=== PATIENT | female | born 1945 | race Caucasian/White ===

== ENCOUNTER → 2016-08-20 | Outpatient (CLI) | payer OTHER ==
[~2016-08-20] MED LIST: ZCRUNK
[2016-08-20 13:18] LABS: BLOOD UREA NITROGEN 16 mg/dl (7-18); BUN/CREATININE RATIO 18.4 (10-20); CALCIUM 8.7 mg/dl (8.5-10.1); CARBON DIOXIDE 29 mmol/L (21-32); CHLORIDE 104 mmol/L (98-107); CREATININE 0.85 mg/dl (0.60-1.20); GLUCOSE 127 mg/dl (70-99); POTASSIUM 4.4 mmol/L (3.5-5.1); SODIUM 141 mmol/L (136-145)
[2016-08-20 13:23] LABS: CHOLESTEROL 171 mg/dl (0-200); CHOLESTEROL/HDL RATIO 3.3; HDL CHOLESTEROL 52 mg/dl; TRIGLYCERIDES 120 mg/dl (0-150); VERY LOW DENSITY LIPOPROT CALC 24 mg/dl
[2016-08-20 14:25] LABS: ESTIMATED AVERAGE GLUCOSE 134 mg/dl; HA1C FLAG Normal (Normal)
== END | disposition home or self-care (01) ==
LOC: C.LABSPEC 12:31
PROVIDERS: ATTEND Internal Medicine
DX: E11.9 Type 2 diabetes mellitus without complications (principal); E66.09 Other obesity due to excess calories; I10 Essential (primary) hypertension; Z00.00 Encounter for general adult medical examination without abnormal findings

== ENCOUNTER → 2016-08-23 | Outpatient (CLI) | payer OTHER ==
[2016-08-23 16:10] LABS: RATIO 5.4 mcg/mg (0-30.0)
--- NOTE | 2016-08-27 11:44 | CODING QUERY NO DIAGNOSIS ---
: 1945 TREATMENT RENDERED WITHOUT A DIAGNOSIS To promote full compliance with coding requirements relating to patient care, physician participation is requested in all cases of guide dog mobility instructor uncertainty. Please assist us with providing a diagnosis/symptom for the test(s) below: A diagnosis/symptom was not documented on your Order. A valid diagnosis/symptom is required to bill all insurances. Please remember that we are unable to code a diagnosis of rule out, probable, possible, questionable, or suspected. Tests that require a diagnosis: * CLEOPATRA/RILEY RAT DOS: 08/23/16 DIAGNOSIS: Provider Signature: Date: Thank you [facility] Information Management Once completed, please kindly fax back to [phone] For questions please call [phone]
== END | disposition home or self-care (01) ==
LOC: C.LABSPEC 14:56
PROVIDERS: ATTEND Internal Medicine
DX: E11.9 Type 2 diabetes mellitus without complications (principal)

== ENCOUNTER → 2016-08-25 | Outpatient (CLI) | payer OTHER | END | disposition home or self-care (01) | LOC: C.LABSPEC 17:23 | PROVIDERS: ATTEND Internal Medicine | DX: R19.4 Change in bowel habit (principal) ==

== ENCOUNTER → 2017-02-18 | Outpatient (CLI) | payer OTHER ==
[2017-02-18 13:58] LABS: ESTIMATED AVERAGE GLUCOSE 137 mg/dl; HA1C FLAG Normal (Normal)
[2017-02-18 14:02] LABS: BLOOD UREA NITROGEN 11 mg/dl (7-18); BUN/CREATININE RATIO 12.7 (10-20); CALCIUM 8.8 mg/dl (8.5-10.1); CARBON DIOXIDE 28 mmol/L (21-32); CHLORIDE 107 mmol/L (98-107); CHOLESTEROL 164 mg/dl (0-200); CREATININE 0.83 mg/dl (0.60-1.20); GLUCOSE 133 mg/dl (70-99); POTASSIUM 4.3 mmol/L (3.5-5.1); SODIUM 140 mmol/L (136-145)
[2017-02-18 14:05] LABS: CHOLESTEROL/HDL RATIO 3.3; HDL CHOLESTEROL 50 mg/dl; TRIGLYCERIDES 128 mg/dl (0-150); VERY LOW DENSITY LIPOPROT CALC 26 mg/dl
== END | disposition home or self-care (01) ==
LOC: C.LABSPEC 12:43
PROVIDERS: ATTEND Internal Medicine
DX: E11.9 Type 2 diabetes mellitus without complications (principal); E78.5 Hyperlipidemia, unspecified

== ENCOUNTER → 2017-06-08 | Outpatient (CLI) | payer OTHER ==
--- NOTE | 2017-06-08 14:26 | MAMMOGRAPHY REPORT ---
BILATERAL DIGITAL SCREENING MAMMOGRAM TOMOSYNTHESIS WITH CAD: 06/08/2017 CLINICAL HISTORY: Routine screening. Patient has no complaints. TECHNIQUE: Breast tomosynthesis in addition to standard 2D mammography was performed. Current study was also evaluated with a Computer Aided Detection (CAD) system. COMPARISON: Comparison is made to exams dated: 06/07/2016 mammogram, 06/03/2015 mammogram, 04/24/2014 mammogram, 04/23/2013 mammogram, 04/03/2012 mammogram, and 04/02/2011 mammogram - [facility]. BREAST COMPOSITION: There are scattered areas of fibroglandular density in both breasts. FINDINGS: No suspicious masses, calcifications, or areas of architectural distortion are noted in ei ther breast. There has been no significant interval change compared to prior exams. Small circumscri bed oval benign-appearing mass in the right lateral breast on the cc view is stable dating back to at least the May 2015 exam, and considered benign given long-term stability. IMPRESSION: ACR BI-RADS CATEGORY 2: BENIGN There is no mammographic evidence of malignancy. A 1 year screening mammogram is recommended. The pa tient will receive written notification of the results. Approximately 10% of breast cancers are not detected with mammography. A negative mammographic report should not delay biopsy if a clinically suggestive mass is present. Cristina Pollard M.D. /:06/08/2017 12:17:56 [employer] Assistant: Teagan HOUSE)(Dany), [facility] letter sent: Normal 1/2 BI-RADS Code: ACR BI-RADS Category 2: Benign
== END | disposition home or self-care (01) ==
LOC: C.MAMM 11:19
PROVIDERS: ATTEND Internal Medicine
DX: Z12.31 Encounter for screening mammogram for malignant neoplasm of breast (principal)

== ENCOUNTER → 2017-08-22 | Outpatient (CLI) | payer OTHER ==
[2017-08-22 15:35] LABS: BLOOD UREA NITROGEN 10 mg/dl (7-18); CARBON DIOXIDE 30 mmol/L (21-32); CREATININE 0.82 mg/dl (0.60-1.20); GLUCOSE 111 mg/dl (70-99); POTASSIUM 3.8 mmol/L (3.5-5.1); SODIUM 136 mmol/L (136-145)
[2017-08-22 15:38] LABS: CHOLESTEROL 179 mg/dl (0-200); LDL CHOLESTEROL (DIRECT) 116 mg/dl
[2017-08-22 16:15] LABS: HEMOGLOBIN A1C 6.5 % (4.5-5.6)
== END | disposition home or self-care (01) ==
LOC: C.LABSPEC 14:45
PROVIDERS: ATTEND Internal Medicine
DX: Z00.00 Encounter for general adult medical examination without abnormal findings (principal); E11.9 Type 2 diabetes mellitus without complications; E78.5 Hyperlipidemia, unspecified

== ENCOUNTER → 2017-08-25 | Outpatient (CLI) | payer OTHER ==
[2017-08-25 13:51] LABS: CREATININE RANDOM URINE 35.7 mg/dl
== END | disposition home or self-care (01) ==
LOC: C.LABSPEC 12:31
PROVIDERS: ATTEND Internal Medicine
DX: E11.9 Type 2 diabetes mellitus without complications (principal)

== ENCOUNTER → 2017-09-26 | Outpatient (CLI) | payer OTHER ==
[2017-10-03 14:08] LABS: FECAL OCCULT BLOOD #1 NEGATIVE (NEGATIVE); FECAL OCCULT BLOOD #2 NEGATIVE (NEGATIVE); FECAL OCCULT BLOOD #3 NEGATIVE (NEGATIVE)
== END | disposition home or self-care (01) ==
LOC: C.LABSPEC 12:34
PROVIDERS: ATTEND Internal Medicine
DX: Z12.11 Encounter for screening for malignant neoplasm of colon (principal)

== ENCOUNTER 2023-12-13 13:46 | Inpatient (IN) ==
[2023-12-13] MEDS: SODIUM CHLORIDE 0.9% 1,000 ML IV SCH (14:13)
[2023-12-13] MEDS: dilTIAZem HCl 5 MG/ML 5 ML VIAL IV STA (14:14)
[2023-12-13] MEDS: dilTIAZem HCl 5 MG/ML 5 ML VIAL IV ONE (14:24)
[2023-12-13] MEDS: ONDANSETRON INJ 2 MG/ML 2 ML VIAL IV STA (14:30)
[2023-12-13 14:41] LABS: Basophils # (auto) 0.02 K/uL (0.00-0.20); Basophils % (auto) 0.4 %; Eosinophils # (auto) 0.07 K/uL (0.00-0.50); Eosinophils % (auto) 1.3 %; Hematocrit (blood only) 43.8 % (37.0-47.0); Hemoglobin 14.7 g/dl (12.0-16.0); Immature Granulocytes # (auto) 0.02 K/uL (0.01-0.20); Immature Granulocytes % (auto) 0.4 %; Lymphocytes % (auto) 29.1 %; Mean Corpuscular Hemoglobin 30.2 pg (25.0-34.0); Mean Corpuscular Hgb Conc 33.6 g/dL (32.0-36.0); Mean Corpuscular Volume 90.1 fL (80.0-100.0); Mean Platelet Volume 10.1 fL (9.4-12.4); Monocytes # (auto) 0.44 K/uL (0.11-0.59); Neutrophils # (auto) 3.34 K/uL (1.40-6.50); Neutrophils % (auto) 60.8 %; Platelet Count 424 K/uL (130-400); RDW Coefficient of Variation 12.2 % (11.5-14.5); RDW Standard Deviation 40.4 fL (36.4-46.3); Red Blood Count 4.86 M/uL (4.20-5.40); White Blood Count 5.49 K/ul (4.8-10.8)
[2023-12-13 14:42] LABS: iSTAT Creatinine 1.2 mg/dl (0.6-1.3); iSTAT Hemoglobin 14.6 g/dl (12.0-16.0); iSTAT Ionized Calcium 1.04 mmol/l (1.12-1.32); iSTAT Potassium 3.9 mmol/L (3.3-5.0)
--- NOTE | 2023-12-13 15:05 | XRay Report ---
SINGLE VIEW CHEST CLINICAL HISTORY: Sepsis. FINDINGS: An AP, portable, upright chest radiograph is obtained. No prior studies are available for c omparison at the time of dictation. The heart is enlarged noting atherosclerotic calcification of the thoracic aorta. The pulmonary vasculature is noncongested. Nonspecific interstitial thickening is li jessie chronic. There is bibasilar scarring/atelectasis. The lungs and pleural spaces are otherwise judith ar. No pneumothorax is seen. The skeletal structures are osteopenic. The bony thorax is grossly intac t. IMPRESSION: Cardiomegaly with no active disease in the chest. ACT 112: Negative or not required by law. Electronically signed by: Aguilar Bravo M.D. 12/13/2023 3:04 PM
[2023-12-13 15:08] LABS: Albumin Level 4.1 gm/dl (3.4-5.0); BUN Creatinine Ratio 21.7 (10-20); Bilirubin Direct 0.2 mg/dl (0-0.2); Calcium 8.9 mg/dl (8.6-10.3); Creatinine Clr Calc Pharmacy 52.4 ml/min; Est GFR (African American) 58.2 ml/min; Est GFR (Non-African American) 50.3 ml/min; Magnesium 1.9 mg/dl (1.7-2.4); Total Protein 6.9 gm/dl (6.0-8.3)
[2023-12-13] MEDS: OPTIRAY 320 125ml IV ONE (15:15)
[2023-12-13 15:27] LABS: Troponin I High Sensitivity 55.8 pg/ml (0-14)
[2023-12-13] MEDS: dilTIAZem HCL 125 MG in DEXTROSE 5% 100 ML IV SCH (15:43)
--- NOTE | 2023-12-13 15:47 | CT Scan Report ---
CT ANGIOGRAM OF THE CHEST; CT SCAN OF THE ABDOMEN AND PELVIS WITH IV CONTRAST CLINICAL HISTORY: Dyspnea. Nausea and vomiting. COMPARISON STUDY: Chest x-ray dated 12/13/2023. TECHNIQUE: Following the IV administration of 118 of Optiray 320, CT angiogram of the chest is perfor med from the upper abdomen to the thoracic inlet utilizing the pulmonary embolus protocol. Images are reviewed in the axial, sagittal, coronal planes. 3-D MIPS images are created and assessed. Subsequen tly, CT scan of the abdomen and pelvis was performed from the lung bases to the proximal femora. Imag es are reviewed in the axial, sagittal, and coronal planes. IV contrast was administered without comp lication. A dose lowering technique was utilized adhering to the principles of ALARA. CT DOSE: 2211.94 mGy.cm FINDINGS: CHEST: Thyroid: Imaged portions of the thyroid gland are normal in size and attenuation. Thoracic aorta: There is atherosclerotic calcification of the thoracic aorta, which is normal in andrew koby and demonstrates standard 3-vessel arch anatomy. No dissection is seen. Pulmonary vasculature: The main pulmonary arteries are dilated suggesting pulmonary artery hypertensi on. There are no filling defects identified in the main, lobar, or segmental pulmonary arteries to in dicate pulmonary embolus. Heart: The heart is mildly enlarged and without pericardial effusion. The mitral annulus is calcified . There are scattered coronary artery calcifications Lungs and pleural spaces: There is no airspace consolidation or pleural effusion. Scarring/atelectasi s is noted at the lung bases. The trachea and central airways are clear. Diffuse peribronchial thicke eileen is observed there are scattered calcified granulomas. Mediastinum: There is no mediastinal lymphadenopathy. Alva: There are calcified left hilar nodes. No adenopathy is seen. Axillae: There is no axillary lymphadenopathy. Bony thorax: The skeletal structures are osteopenic. Degenerative change is noted in the shoulders an d thoracic spine. A large hemangioma is noted in the body of T11. No lytic or blastic lesions are anisa ntified. ABDOMEN AND PELVIS: Liver: The contrast-enhanced liver is normal in size, contour, and attenuation. There is no intrahepa tic biliary ductal dilatation. The hepatic veins and portal veins are patent. There are scattered rosy cified hepatic granulomas. Gallbladder: Unremarkable. Spleen: Normal in size and attenuation. There are calcified splenic granulomas. Pancreas: Mild atrophic and grossly unremarkable. Adrenal glands: Unremarkable. Kidneys: The contrast enhanced kidneys are normal in size and without hydronephrosis. The kidneys enh ance symmetrically. Abdominal vasculature: The abdominal aorta is normal in course and caliber noting mild atheroscleroti c calcification. Stomach and bowel: A small hiatal hernia is noted. No bowel obstruction is seen. There is mild coloni c diverticulosis without CT evidence of acute diverticulitis. The appendix is well-visualized and no rmal. Peritoneum: There is no intraperitoneal free air or abdominal ascites. There is a fat-containing umbi lical hernia. Lymphadenopathy: None. Pelvic viscera: The bladder is normal as visualized. The endometrium appears thickened for age, measu ring up to 14 mm. A 14 mm simple cystic focus is seen in the right ovary. Skeletal structures: The skeletal structures are osteopenic. There is mild to moderate lumbosacral sp ondylosis. No lytic or blastic lesions are seen. IMPRESSION: 1. There is no evidence of pulmonary embolus in the main, lobar, or segmental pulmonary arteries. 2. There is no airspace consolidation or pleural effusion. 3. No acute infectious or inflammatory findings are identified in the abdomen or pelvis. 4. Mild colonic diverticulosis without CT evidence of acute diverticulitis. 5. The endometrium appears thickened for age. This is not well assessed by CT, and nonemergent follow -up with gynecology and pelvic ultrasound is recommended for further assessment. 6. Additional findings as above. ACT 112: Negative or not required by law. Electronically signed by: Aguilar Bravo M.D. 12/13/2023 3:45 PM
[2023-12-13 15:54] LABS: Base Excess VBG 1.7 mEq/L; HCO3 VBG 28 mmol/L; Oxygen Saturation VBG < 60.0 %; PCO2 VBG 51 mmHg (38-50); PO2 VBG 25 mmHg; pH VBG 7.35 (7.36-7.41)
[2023-12-13] MEDS: STAT IV Infusion **Titration per Protocol STA (16:00)
[2023-12-13] MEDS ORDERED: CARBOHYDRATES FOR HYPOGLYCEMIA PO PRN (16:10)
[2023-12-13] MEDS ORDERED: GLUCAGON FOR INJ 1 MG VIAL SQ PRN (16:10)
[2023-12-13] MEDS ORDERED: GLUCOSE 10 TAB/TUBE PO PRN (16:10)
[2023-12-13] MEDS ORDERED: GLUCOSE 40% GEL 15 GM TUBE PO PRN (16:10)
[2023-12-13] MEDS ORDERED: DEXTROSE 50% 50 ML SYRINGE IV PRN (16:10)
[2023-12-13 16:23] LABS: Partial Thromboplastin Ratio 0.9; Partial Thromboplastin Time 25 Seconds (21-31); Prothrombin Time 10.6 Seconds (9.0-12.0)
--- NOTE | 2023-12-13 16:26 | Electrocardiogram Report ---
Test Reason : Blood Pressure : / mmHG Vent. Rate : 125 BPM Atrial Rate : 000 BPM P-R Int : 000 ms QRS Dur : 074 ms QT Int : 316 ms P-R-T Axes : 000 010 132 degrees QTc Int : 456 ms Atrial fibrillation with rapid ventricular response Minimal voltage criteria for LVH, may be normal variant ( R in aVL ) Abnormal ECG When compared with ECG of 08-JUN-1999 05:19, Atrial fibrillation has replaced Sinus rhythm Vent. rate has increased BY [address] now depressed in Lateral leads T wave inversion now evident in Lateral leads Confirmed by Toney Ward ([id number]) on 12/13/2023 4:26:02 PM Referred By: Confirmed By:Tonye Ward
[2023-12-13 16:38] LABS: Troponin I High Sensitivity 55.2 pg/ml (0-14)
[2023-12-13] MEDS: SODIUM CHLORIDE 0.9% 1,000 ML IV ONE (16:40)
[2023-12-13 16:47] LABS: Thyroid Stimulating Hormone 1.17 uIu/ml (0.300-4.500)
--- NOTE | 2023-12-13 16:52 | History & Physical Report ---
Date of Service December 13, 2023 Assessment & Plan (1) Atrial fibrillation with rapid ventricular response: Plan: -Admit to the PCU on tele and pulse oximetry -Currently in afib RVR with HR in the 120's but otherwise stable after additional IV fluid resuscitation at the time of admission -Presented to the ED with one week of non-productive cough, nausea/vomiting, non-bloody diarrhea, and generalized weakness -Found to be in new-onset afib RVR with HR in the 120-140's -Was given 1L NSS, 20 mg IV diltiazem and started on a diltiazem drip at 5 mg/hr prior to admission -At this time it appears that the patient's dehydration and Covid-19 infection are the most-likely causes of her afib RVR -Electrolytes are stable, CTA of the chest and CT of the abd/pelvis were negative for acute causes -TSH is WNL -We will give an additional 750 cc bolus of NSS to give a total of 2L NSS since arrival to the ED -Will start maintenance LR at 100 mL/hr following as she is quite dehydrated and still nauseous -Hold antihypertensives at this time -Will give 10 meq IV KCL and 2gm IV mag-sulfate as K+ is 3.9 and mag is 1.8 -Continue diltiazem drip for now -Will start low dose, weight based heparin drip, w/bolus for anticoagulation -Follow TTE tomorrow -Heparin drip for DVT PPX -HH/DMII diet -AM CBC, CMP, mag, PT/INR (2) Nausea and vomiting: Plan: -Likely due to covid 19 infection -No acute findings on CT of the abd/pelvis w/con -Will continue IV hydration and prn zofran for now (3) COVID-19: Plan: -Patient reports positive home test on 12/12/23 -Start Covid 19 precautions -Will obtain official testing on admission -Patient is not hypoxic, supportive care for now -Incentive spirometry, prn guaifenesin, prn O2 to keep SpO2 at or above 92% (4) Abnormal CT scan, pelvis: Plan: -CT scan of the abd/pelvis w/IV con today mentions increased thickening of the endometrium for the patient's age -Recommends non-emergent pelvic US and [facility] gynecology follow-up -Please ensure patient has follow up scheduled before discharge (5) Diarrhea: Plan: -Patient reports multiple episodes of non-blood diarrhea over the past week -Has improved as the week progressed, likely due to Covid 19 infection -No recent antibiotic use -If she continues to have diarrhea will obtain stool studies -Hold antidiarrheals for now (6) Elevated troponin: Plan: -Initial high sen trop elevated at 55 --> 55 on 2 hour repeat -Patient denies chest pain -Likely due to demand from afib RVR, dehydration, and hypotension -Continue treatment per Afib RVR plan, continue IV hydration -Follow TTE tomorrow -Continue heparin drip -will continue to trend high sen trop overnight (7) HTN (hypertension): Plan: -Currently stable -Hold amlodipine and lisinopril for now with hypotension at the time of admission (8) DMII (diabetes mellitus, type 2): Plan: -Hold metformin -Monitor BSG ACHS, goal is 110-160 for now -Not on insulin at home -Start CF 50 and CR of 15 for now -Adjust regimen as needed (9) Hyperlipidemia: Plan: -Continue statin Plan The patient was discussed with Dr. Lamb at the time of the admission History of Present Illness Chief Complaint: Generalized weakness, nausea, vomiting, Covid 19 Primary Care Provider: Gill Christina PA-C Shannan is a 78 year old female with a PMH significant for HTN, hyperlipidemia, and DMII who presented to the [facility] ED on 12/13/23 with complaints of positive home Covid-19 test on 12/12/23 and ongoing weakness, nausea, vomiting for the past week. On arrival to the ED she was noted to be tachycardic with HR in the 150's but was otherwise stable. ECG shows patient to be in new onset afib RVR. Labs were significant for a Cr of 1.06 (baseline is near 0.7), AG of 12 with bicarb WNL, chloride of 96, corrected sodium of 135, glucose of 181, ionized calcium of 1.04, initial high sen trop of 55 --> 55 on 2 hour repeat. Chest xray was negative for acute findings. CTA of the chest and CT of the abd/pelvis w/IV con were read as "1. There is no evidence of pulmonary embolus in the main, lobar, or segmental pulmonary arteries. 2. There is no airspace consolidation or pleural effusion. 3. No acute infectious or inflammatory findings are identified in the abdomen or pelvis. 4. Mild colonic diverticulosis without CT evidence of acute diverticulitis. 65. The endometrium appears thicke missy for age. This is not well assessed by CT, and nonemergent follow-up with gynecology and pelvic ultrasound is recommended for further assessment. 6. Additional findings as above.". Prior to admission the patient was given 1L NSS, 20 mg IV diltiazem, 4 mg IV zofran, and was started on a diltiazem drip at 5 mg/hr. At the time of the exam the patient was sitting in bed in no acute distress. She states that she started to develop a non-productive cough, nausea, non- bloody emesis, non-bloody diarrhea, and poor oral intake one week ago. She has had very poor oral intake over this time but has still been taking her home meds as prescribed, including her antihypertensives. She presented to the ED today as she continues to feel generally weak and was not improving. Denies recent chest pain, SOB, abd pain, hemoptysis, dysuria, hematuria, melena, LE swelling, and recent trauma. We discussed her [id number] score of 5, giving her an approximately 7.2% stroke risk per/year. When asked, patient and her [id number] confirm the patient does not have a previous Hx of major bleeding such as stroke, GI bleed, hematuria, and is not a high fall risk. Patient would like to being anticoagulation at this time. The patient is a full code and she would want her son to make medical decisions for her if she cannot make them herself. At the end of my exam the patient's HR increased to the 140's and her systolic BP fell into the mid 70's. Patient became light headed but denies other symptoms. We gave the patient an additional 250 cc NSS bolus and her pressure/symptoms improved. Please refer to Dr. Lamb' attestation for any changes to the treatment plan Allergies Allergy/AdvReac Type Severity Reaction Status Date / Time No Known Allergies Allergy Verified 12/13/23 16:05 Home Medications Medication Instructions Recorded Confirmed Type amlodipine 5 mg tablet 5 mg PO QAM 12/13/23 12/13/23 History lisinopril 40 mg tablet 40 mg PO QAM 12/13/23 12/13/23 History metformin 500 mg tablet 500 mg PO QAM 12/13/23 12/13/23 History simvastatin 40 mg tablet 40 mg PO 12/13/23 12/13/23 History Past Med/Surg History Social History Smoking Status: Never smoker Preferred Language: Kinyarwanda Feels Safe at Home: Yes Physical Exam Physical Exam: Physical Exam: General: In no acute distress, stated age, ill but non-toxic appearing HEENT: Normocephalic, atraumatic, no scleral icterus, pupils around round, symmetrical, and reactive to light, dry mucus membranes, trachea midline, no thyromegaly Chest/Pulm: No respiratory distress, symmetrical chest expansion, clear breath sounds throughout Cardiac: irregular rate and rhythm, no murmurs noted Abdomen: Negative for ascites and bruising, normoactive bowel sounds, soft, non-tender to palpation throughout Musculoskeletal: Symmetrical and without signs of acute trauma, upper and lower extremities with full ROM, no atrophy, spasticity, or flaccidity Extremities: Radial, dorsalis pedis, and posterior tibial pulses are intact and symmetrical, no edema noted in the BL LE's Skin: Warm, dry, no rashes , lesions, or scars noted Neuro: Alert and oriented to person, place, month, year, and president, no focal defects, CN II-XII tested and intact, no tremors noted Psych: No acute distress, calm and cooperative during the exam Results & Data Results & Data Vital Signs (Past 12 Hours) Vital Signs Temp Pulse Resp BP Pulse Ox O2 Del Method 12/13/23 15:50 120 H 18 93 Room Air 12/13/23 15:50 126/79 12/13/23 15:44 114/86 12/13/23 15:44 114/86 12/13/23 15:44 141 H 19 94 12/13/23 15:40 137 H 11 L 93 12/13/23 15:30 108 H 9 L 96 12/13/23 15:23 132 H 19 97 12/13/23 14:50 105 H 17 97 12/13/23 14:40 106 H 27 H 91 12/13/23 14:31 120/61 12/13/23 14:31 96 H 23 12/13/23 14:30 94 H 25 H 93 12/13/23 14:26 82 18 93 12/13/23 14:26 109/50 L 12/13/23 14:20 93 H 15 92 12/13/23 14:19 102/56 L 12/13/23 14:19 81 21 12/13/23 14:15 164 H 18 12/13/23 14:15 142/72 H 12/13/23 14:10 133 H 22 12/13/23 14:07 92 Room Air 12/13/23 14:03 150 H 12/13/23 14:02 152 H 16 12/13/23 13:49 36.4 C L 120 H 22 102/66 96 Room Air Laboratory Results Abnormal lab results 12/13/23 12/13/23 12/13/23 Range/Units 14:00 14:29 15:33 Plt Count 424 H (130-400) K/uL VBG pH 7.35 L (7.36-7.41) VBG pCO2 51 H (38-50) mmHg POC Sodium 134 L (135-144) mmol/L Sodium 134 L (136-145) mmol/L POC Chloride 97 L (101-112) mmol/L Chloride 96 L (98-107) mmol/L Anion Gap 12 H (3-11) POC Anion Gap 14.0 L (16-25) mmol/L POC BUN 27 H (7-18) mg/dl BUN/Creatinine Ratio 21.7 H (10-20) Glucose 181 H (70-99(Fasting)) mg/dl POC Glucose (other) 179 H (70-99) mg/dl POC Ioniz Calcium Georgette 1.04 L (1.12-1.32) mmol/l Troponin I High Sens 55.8 H* (0-14) pg/ml 12/13/23 Range/Units 15:35 Plt Count (130-400) K/uL VBG pH (7.36-7.41) VBG pCO2 (38-50) mmHg POC Sodium (135-144) mmol/L Sodium (136-145) mmol/L POC Chloride (101-112) mmol/L Chloride (98-107) mmol/L Anion Gap (3-11) POC Anion Gap (16-25) mmol/L POC BUN (7-18) mg/dl BUN/Creatinine Ratio (10-20) Glucose (70-99(Fasting)) mg/dl POC Glucose (other) (70-99) mg/dl POC Ioniz Calcium Georgette (1.12-1.32) mmol/l Troponin I High Sens 55.2 H* (0-14) pg/ml Diagnostic Findings Chest X-Ray 12/13/23 14:07 SINGLE VIEW CHEST CLINICAL HISTORY: Sepsis. FINDINGS: An AP, portable, upright chest radiograph is obtained. No prior studies are available for comparison at the time of dictation. The heart is enlarged noting atherosclerotic calcification of the thoracic aorta. The pulmonary vasculature is noncongested. Nonspecific interstitial thickening is likely chronic. There is bibasilar scarring/atelectasis. The lungs and pleural spaces are otherwise clear. No pneumothorax is seen. The skeletal structures are osteopenic. The bony thorax is grossly intact. IMPRESSION: Cardiomegaly with no active disease in the chest. ACT 112: Negative or not required by law. Electronically signed by: Aguilar Bravo M.D. 12/13/2023 3:04 PM Abdomen/Pelvis CT 12/13/23 14:08 CT ANGIOGRAM OF THE CHEST; CT SCAN OF THE ABDOMEN AND PELVIS WITH IV CONTRAST CLINICAL HISTORY: Dyspnea. Nausea and vomiting. COMPARISON STUDY: Chest x-ray dated 12/13/2023. TECHNIQUE: Following the IV administration of 118 of Optiray 320, CT angiogram of the chest is performed from the upper abdomen to the thoracic inlet utilizing the pulmonary embolus protocol. Images are reviewed in the axial, sagittal, coronal planes. 3-D MIPS images are created and assessed. Subsequently, CT scan of the abdomen and pelvis was performed from the lung bases to the proximal femora. Images are reviewed in the axial, sagittal, and coronal planes. IV contrast was administered without complication. A dose lowering technique was utilized adhering to the principles of ALARA. CT DOSE: 2211.94 mGy.cm FINDINGS: CHEST: Thyroid: Imaged portions of the thyroid gland are normal in size and attenuation. Thoracic aorta: There is atherosclerotic calcification of the thoracic aorta, which is normal in caliber and demonstrates standard 3-vessel arch anatomy. No dissection is seen. Pulmonary vasculature: The main pulmonary arteries are dilated suggesting pulmonary artery hypertension. There are no filling defects identified in the main, lobar, or segmental pulmonary arteries to indicate pulmonary embolus. Heart: The heart is mildly enlarged and without pericardial effusion. The mitral annulus is calcified. There are scattered coronary artery calcifications Lungs and pleural spaces: There is no airspace consolidation or pleural effusion. Scarring/atelectasis is noted at the lung bases. The trachea and central airways are clear. Diffuse peribronchial thickening is observed there are scattered calcified granulomas. Mediastinum: There is no mediastinal lymphadenopathy. Alva: There are calcified left hilar nodes. No adenopathy is seen. Axillae: There is no axillary lymphadenopathy. Bony thorax: The skeletal structures are osteopenic. Degenerative change is noted in the shoulders and thoracic spine. A large hemangioma is noted in the body of T11. No lytic or blastic lesions are identified. ABDOMEN AND PELVIS: Liver: The contrast-enhanced liver is normal in size, contour, and attenuation. There is no intrahepatic biliary ductal dilatation. The hepatic veins and portal veins are patent. There are scattered calcified hepatic granulomas. Gallbladder: Unremarkable. Spleen: Normal in size and attenuation. There are calcified splenic granulomas. Pancreas: Mild atrophic and grossly unremarkable. Adrenal glands: Unremarkable. Kidneys: The contrast enhanced kidneys are normal in size and without hydronephrosis. The kidneys enhance symmetrically. Abdominal vasculature: The abdominal aorta is normal in course and caliber noting mild atherosclerotic calcification. Stomach and bowel: A small hiatal hernia is noted. No bowel obstruction is seen. There is mild colonic diverticulosis without CT evidence of acute diverticulitis. The appendix is well-visualized and normal. Peritoneum: There is no intraperitoneal free air or abdominal ascites. There is a fat-containing umbilical hernia. Lymphadenopathy: None. Pelvic viscera: The bladder is normal as visualized. The endometrium appears thickened for age, measuring up to 14 mm. A 14 mm simple cystic focus is seen in the right ovary. Skeletal structures: The skeletal structures are osteopenic. There is mild to moderate lumbosacral spondylosis. No lytic or blastic lesions are seen. IMPRESSION: 1. There is no evidence of pulmonary embolus in the main, lobar, or segmental pulmonary arteries. 2. There is no airspace consolidation or pleural effusion. 3. No acute infectious or inflammatory findings are identified in the abdomen or pelvis. 4. Mild colonic diverticulosis without CT evidence of acute diverticulitis. 5. The endometrium appears thickened for age. This is not well assessed by CT, and nonemergent follow-up with gynecology and pelvic ultrasound is recommended for further assessment. 6. Additional findings as above. ACT 112: Negative or not required by law. Electronically signed by: Aguilar Bravo M.D. 12/13/2023 3:45 PM Chest CTA 12/13/23 14:08 CT ANGIOGRAM OF THE CHEST; CT SCAN OF THE ABDOMEN AND PELVIS WITH IV CONTRAST CLINICAL HISTORY: Dyspnea. Nausea and vomiting. COMPARISON STUDY: Chest x-ray dated 12/13/2023. TECHNIQUE: Following the IV administration of 118 of Optiray 320, CT angiogram of the chest is performed from the upper abdomen to the thoracic inlet utilizing the pulmonary embolus protocol. Images are reviewed in the axial, sagittal, coronal planes. 3-D MIPS images are created and assessed. Subsequently, CT scan of the abdomen and pelvis was performed from the lung bases to the proximal femora. Images are reviewed in the axial, sagittal, and coronal planes. IV contrast was administered without complication. A dose lowering technique was utilized adhering to the principles of ALARA. CT DOSE: 2211.94 mGy.cm FINDINGS: CHEST: Thyroid: Imaged portions of the thyroid gland are normal in size and attenuation. Thoracic aorta: There is atherosclerotic calcification of the thoracic aorta, which is normal in caliber and demonstrates standard 3-vessel arch anatomy. No dissection is seen. Pulmonary vasculature: The main pulmonary arteries are dilated suggesting pulmonary artery hypertension. There are no filling defects identified in the main, lobar, or segmental pulmonary arteries to indicate pulmonary embolus. Heart: The heart is mildly enlarged and without pericardial effusion. The mitral annulus is calcified. There are scattered coronary artery calcifications Lungs and pleural spaces: There is no airspace consolidation or pleural effusion. Scarring/atelectasis is noted at the lung bases. The trachea and central airways are clear. Diffuse peribronchial thickening is observed there are scattered calcified granulomas. Mediastinum: There is no mediastinal lymphadenopathy. Alva: There are calcified left hilar nodes. No adenopathy is seen. Axillae: There is no axillary lymphadenopathy. Bony thorax: The skeletal structures are osteopenic. Degenerative change is noted in the shoulders and thoracic spine. A large hemangioma is noted in the body of T11. No lytic or blastic lesions are identified. ABDOMEN AND PELVIS: Liver: The contrast-enhanced liver is normal in size, contour, and attenuation. There is no intrahepatic biliary ductal dilatation. The hepatic veins and portal veins are patent. There are scattered calcified hepatic granulomas. Gallbladder: Unremarkable. Spleen: Normal in size and attenuation. There are calcified splenic granulomas. Pancreas: Mild atrophic and grossly unremarkable. Adrenal glands: Unremarkable. Kidneys: The contrast enhanced kidneys are normal in size and without hydronephrosis. The kidneys enhance symmetrically. Abdominal vasculature: The abdominal aorta is normal in course and caliber noting mild atherosclerotic calcification. Stomach and bowel: A small hiatal hernia is noted. No bowel obstruction is seen. There is mild colonic diverticulosis without CT evidence of acute diverticulitis. The appendix is well-visualized and normal. Peritoneum: There is no intraperitoneal free air or abdominal ascites. There is a fat-containing umbilical hernia. Lymphadenopathy: None. Pelvic viscera: The bladder is normal as visualized. The endometrium appears thickened for age, measuring up to 14 mm. A 14 mm simple cystic focus is seen in the right ovary. Skeletal structures: The skeletal structures are osteopenic. There is mild to moderate lumbosacral spondylosis. No lytic or blastic lesions are seen. IMPRESSION: 1. There is no evidence of pulmonary embolus in the main, lobar, or segmental pulmonary arteries. 2. There is no airspace consolidation or pleural effusion. 3. No acute infectious or inflammatory findings are identified in the abdomen or pelvis. 4. Mild colonic diverticulosis without CT evidence of acute diverticulitis. 5. The endometrium appears thickened for age. This is not well assessed by CT, and nonemergent follow-up with gynecology and pelvic ultrasound is recommended for further assessment. 6. Additional findings as above. ACT 112: Negative or not required by law. Electronically signed by: Aguilar Bravo M.D. 12/13/2023 3:45 PM ECG Additional Comments: Atrial fibrillation with rapid ventricular response Minimal voltage criteria for LVH, may be normal variant ( R in aVL ) ST & T wave abnormality, consider lateral ischemia Abnormal ECG When compared with ECG of 08-JUN-1999 05:19, Atrial fibrillation has replaced Sinus rhythm Vent. rate has increased BY [address] now depressed in Lateral leads T wave inversion now evident in Lateral leads Confirmed by Toney Ward ([id number]) on 12/13/2023 4:26:02 PM Code Status & VTE Plan Code Status Full code VTE Prophylaxis Plan VTE Prophylaxis will be ordered: Yes Supervising Physician Co-Signing Physician Notes I have personally seen, evaluated and examined the patient. I have also personally discussed the management of the patient with the resident phys ician/KIRSTEN and I agree with the exam findings documented in the history and physical examination and the documented assessment and plan unless otherwise stated below. Brief Exam: In general this is a pleasant 78-year-old female who is alert and oriented x 3 at the time of my exam. She is accompanied by her [id number] at the time of my exam. The patient interacts appropriately pleasantly. HEENT: Normocephalic atraumatic with extremely dry mucous membranes. Heart: Irregular rate and rhythm consistent with atrial fibrillation with rapid ventricular response no mendoza murmur. Lungs: Clear bilaterally. Abdomen: Protuberant soft nontender with positive bowel sounds. Extremities: Intact with no significant edema. Neurologically: Alert and oriented x 3 with no focal deficit. Assessment/plan: As discussed above. Please refer to orders for further planning. Heparin drip and Cardizem drip overnight with IV fluid resuscitation. If echocardiogram deems this is nonvalvular A-fib the patient could be switched over to appropriate oral anticoagulant therapy prior to discharge. PG Care Time/CCT Total # of Minutes Spent Total Time Spent with Patient: Total time spent is greater than 50% in coordination of care (as documented) at patient's floor/unit and/or counseling patient: Coding [place] [address] INT INP/OBS CARE 3/75MIN Patient Type Established Medical Decision Making High Complexity Diagnoses Atrial fibrillation with rapid ventricular response I48.91 Nausea and vomiting R11.2 COVID-[address] scan, pelvis R93.5 Diarrhea R19.7 Elevated troponin R79.89 HTN (hypertension) I10 DMII (diabetes mellitus, type 2) E11.9 Hyperlipidemia E78.5
[2023-12-13] MEDS: HEPARIN SOD (PORCINE) 1000 UNIT/ML IV ONE (17:02)
[2023-12-13] MEDS: HEPARIN SODIUM/DEXTROSE 25,000 UNITS/500 ML BAG IV SCH (17:02)
[2023-12-13] MEDS: Heparin IV Adult Wt-Based Low-Dose w/ INITIAL Bolus Protocol IV STA (18:19)
[2023-12-13] MEDS: POTASSIUM CHLORIDE / WTR 10 MEQ/100 ML PLCT IV SCH (18:32)
[2023-12-13] MEDS: MAGNESIUM SULFATE / D5W 1 GM/100 ML BAG IV SCH (18:32)
[2023-12-13 18:44] LABS: Influenza A virus by PCR Negative (Neg); Influenza B virus by PCR Negative (Neg); RSV by PCR Negative (Neg); SARS CoV2 RNA(COVID-19) Ceph POSITIVE (Negative)
[2023-12-13] MEDS: INSULIN ASPART PER UNIT CHARGE SC SCH (19:41)
--- NOTE | 2023-12-13 19:49 | Emergency Department Note ---
History of Present Illness General Chief complaint: Illness Stated complaint: VOMIT, TESTED POS COVID, FEELING WORSE Time Seen by Provider: 12/13/23 14:06 Source: patient and family ([id number] at bedside) History of Present Illness Provider complaint: Nausea vomiting weakness 78-year-old female presents to the emergency department with her [id number] for nausea vomiting and weakness. Patient reports that she has been feeling ill for the last week and yesterday took a home COVID test which was positive. She denies any recent travel no exogenous hormone usage no hemoptysis. No chest pain or difficulty breathing. Patient states she just feels weak. No falls or traumas. No hematuria or dysuria. No melena hematochezia. Home Medications Medication Instructions Recorded Confirmed Type amlodipine 5 mg tablet 5 mg PO QAM 12/13/23 12/13/23 History lisinopril 40 mg tablet 40 mg PO QAM 12/13/23 12/13/23 History metformin 500 mg tablet 500 mg PO QAM 12/13/23 12/13/23 History simvastatin 40 mg tablet 40 mg PO HS 12/13/23 12/13/23 History Allergies Allergy/AdvReac Type Severity Reaction Status Date / Time No Known Allergies Allergy Verified 12/13/23 16:05 Past Med/Surg History Medical History No pertinent family history Hyperlipidemia DMII (diabetes mellitus, type 2) HTN (hypertension) Surgical History No pertinent past surgical history Social History Smoking Status: Never smoker Preferred Language: Estonian Feels Safe at Home: Yes Physical Exam Vital Signs Vital Signs - 24 hr 12/13/23 13:49 12/13/23 14:02 12/13/23 14:03 Temperature 36.4 C L Temperature Source Oral Pulse Rate 120 H 152 H 150 H Pulse Rate from SpO2 Sensor Respiratory Rate 22 16 Respiratory Effort / Characteristics Non-Labored Spontaneous Respiratory Depth Normal Blood Pressure 102/66 Blood Pressure Mean 78 Pulse Oximetry 96 Oxygen Delivery Method Room Air Sepsis Recent Fever Within 48 Hours No Sepsis New/Unexplained Change in Mental Status N/A Sepsis Action Taken by Nursing No Action Required 12/13/23 14:07 12/13/23 14:10 12/13/23 14:15 Temperature Temperature Source Pulse Rate 133 H Pulse Rate from SpO2 Sensor Respiratory Rate 22 Respiratory Effort / Characteristics Respiratory Depth Blood Pressure 142/72 H Blood Pressure Mean 102 Pulse Oximetry 92 Oxygen Delivery Method Room Air Sepsis Recent Fever Within 48 Hours Sepsis New/Unexplained Change in Mental Status Sepsis Action Taken by Nursing 12/13/23 14:15 12/13/23 14:19 12/13/23 14:19 Temperature Temperature Source Pulse Rate 164 H 81 Pulse Rate from SpO2 Sensor Respiratory Rate 18 21 Respiratory Effort / Characteristics Respiratory Depth Blood Pressure 102/56 L Blood Pressure Mean 65 Pulse Oximetry Oxygen Delivery Method Sepsis Recent Fever Within 48 Hours Sepsis New/Unexplained Change in Mental Status Sepsis Action Taken by Nursing 12/13/23 14:20 12/13/23 14:26 12/13/23 14:26 Temperature Temperature Source Pulse Rate 93 H 82 Pulse Rate from SpO2 Sensor 91 H 72 Respiratory Rate 15 18 Respiratory Effort / Characteristics Respiratory Depth Blood Pressure 109/50 L Blood Pressure Mean 74 Pulse Oximetry 92 93 Oxygen Delivery Method Sepsis Recent Fever Within 48 Hours Sepsis New/Unexplained Change in Mental Status Sepsis Action Taken by Nursing 12/13/23 14:30 12/13/23 14:31 12/13/23 14:31 Temperature Temperature Source Pulse Rate 94 H 96 H Pulse Rate from SpO2 Sensor 95 H Respiratory Rate 25 H 23 Respiratory Effort / Characteristics Respiratory Depth Blood Pressure 120/61 Blood Pressure Mean 82 Pulse Oximetry 93 Oxygen Delivery Method Sepsis Recent Fever Within 48 Hours Sepsis New/Unexplained Change in Mental Status Sepsis Action Taken by Nursing 12/13/23 14:40 12/13/23 14:50 12/13/23 15:23 Temperature Temperature Source Pulse Rate 106 H 105 H 132 H Pulse Rate from SpO2 Sensor 113 H 99 H 132 H Respiratory Rate 27 H 17 19 Respiratory Effort / Characteristics Respiratory Depth Blood Pressure Blood Pressure Mean Pulse Oximetry 91 97 97 Oxygen Delivery Method Sepsis Recent Fever Within 48 Hours Sepsis New/Unexplained Change in Mental Status Sepsis Action Taken by Nursing 12/13/23 15:30 12/13/23 15:40 12/13/23 15:44 Temperature Temperature Source Pulse Rate 108 H 137 H 141 H Pulse Rate from SpO2 Sensor 122 H 140 H 127 H Respiratory Rate 9 L 11 L 19 Respiratory Effort / Characteristics Respiratory Depth Blood Pressure Blood Pressure Mean Pulse Oximetry 96 93 94 Oxygen Delivery Method Sepsis Recent Fever Within 48 Hours Sepsis New/Unexplained Change in Mental Status Sepsis Action Taken by Nursing 12/13/23 15:44 12/13/23 15:44 12/13/23 15:50 Temperature Temperature Source Pulse Rate Pulse Rate from SpO2 Sensor Respiratory Rate Respiratory Effort / Characteristics Respiratory Depth Blood Pressure 114/86 114/86 126/79 Blood Pressure Mean 109 109 87 Pulse Oximetry Oxygen Delivery Method Sepsis Recent Fever Within 48 Hours Sepsis New/Unexplained Change in Mental Status Sepsis Action Taken by Nursing 12/13/23 15:50 Temperature Temperature Source Pulse Rate 120 H Pulse Rate from SpO2 Sensor 129 H Respiratory Rate 18 Respiratory Effort / Characteristics Respiratory Depth Blood Pressure Blood Pressure Mean Pulse Oximetry 93 Oxygen Delivery Method Room Air Sepsis Recent Fever Within 48 Hours Sepsis New/Unexplained Change in Mental Status Sepsis Action Taken by Nursing Physical Exam GENERAL: oriented to person, place, and time. appears well-developed and well- nourished. HENT: Exam performed. - Head: Normocephalic and atraumatic. EYES: Conjunctivae and EOM are normal. Right eye exhibits no discharge. Left eye exhibits no discharge. No scleral icterus. NECK: Normal range of motion. Neck supple. No JVD present. CV: Tachycardic rate, irregular rhythm, normal heart sounds and intact distal pulses. There is no peripheral edema. Palpable radial pulses bue. PULM/CHEST: Effort normal and breath sounds normal. No respiratory distress. No stridor. no wheezes. no rales. ABD: The abdomen is soft. There is no tenderness. NEURO: Motor and sensation grossly intact. SKIN: Skin is warm and dry. He is not diaphoretic. PSYCH: normal mood and affect. Behavior is normal. Judgment and thought content normal. Course Course 1406: The patient was evaluated in room B8. A complete history and physical exam was performed Cardiac monitoring: An order was placed for continuous cardiac monitoring. The monitor shows a rate of 120-160 with atrial fibrilation rhythm interpreted by me Large [place] IV access was obtained patient was started on IV hydration. Cardizem 20 mg IV push was delivered to the patient which improved the patient's ventricular rate. Patient be started Cardizem drip. 1605: Vital signs stable on Cardizem drip. Labs within normal limits with exception of high-sensitivity troponin of 55.2. Discussed case with [facility] hospitalist team Esteban Peno, [employer] and he states he will evaluate the patient with his attending and determine anticoagulation for the patient. Administered Medications Diltiazem HCl 125 mg/ Dextrose 125 mls @ 15 mls/hr IV .Q8H20M [facility]; Protocol Stop: 01/12/24 14:29 Last Titration: 12/13/23 17:50 Dose: 15 mg/hr, 15 mls/hr Documented By: EUN Co-signed By: RENAE Titration: 12/13/23 17:09 Dose: 10 mg/hr, 10 mls/hr Documented By: MIKE Co-signed By: ZEKE Admin: 12/13/23 15:43 Dose: 5 mg/hr, 5 mls/hr Documented By: EUN Co-signed By: DEIDRE Heparin Sodium/Dextrose (Heparin Sodium/Dextrose) 25,000 units in 500 mls @ 18 mls/hr IV .Q24H [facility]; Protocol Stop: 01/12/24 16:59 Last Admin: 12/13/23 17:02 Dose: 900 units/hr, 18 mls/hr Documented By: MIKE Co-signed By: WILLIAM Insulin Aspart (Insulin Aspart Per Unit Charge) 0 units SC ACHS [facility] Stop: 01/12/24 16:29 Last Admin: 12/13/23 19:41 Dose: Not Given Documented By: EUN Discontinued Medications Diltiazem HCl (Diltiazem Hcl 5 Mg/Ml 5 Ml Vial) Confirm Administered Dose 25 mg IV .STK-MED ONE Stop: 12/13/23 14:14 Last Admin: 12/13/23 14:24 Dose: Not Given Documented By: EUN Diltiazem HCl (Diltiazem Hcl 5 Mg/Ml 5 Ml Vial) 20 mg IV NOW STA Stop: 12/13/23 14:21 Last Admin: 12/13/23 14:14 Dose: 20 mg Documented By: EUN Co-signed By: LILIAN Heparin Sodium (Porcine) (Heparin Sod (Porcine) 1000 Unit/Ml) 4,000 units IV NOW ONE Stop: 12/13/23 16:53 Last Admin: 12/13/23 17:02 Dose: 4,000 units Documented By: MIKE Co-signed By: WILLIAM Heparin Sodium/Dextrose (Heparin Iv Adult Wt-Based Low-Dose W/ Initial Bolus Protocol) 1 each IV NOW STA; Protocol Stop: 12/13/23 16:37 Last Admin: 12/13/23 18:19 Dose: Not Given Documented By: EUN Sodium Chloride (Nss) 1,000 mls @ 999 mls/hr IV .Q1H1M [facility] Stop: 12/13/23 15:15 Last Admin: 12/13/23 14:13 Dose: 999 mls/hr Documented By: EUN Potassium Chloride (K Gerardo / Wtr) 10 meq in 100 mls @ 100 mls/hr IV Q1H [facility] Stop: 12/13/23 18:14 Last Admin: 12/13/23 19:36 Dose: 100 mls/hr Documented By: Infusion: 12/13/23 19:32 Dose: Infused Documented By: Admin: 12/13/23 18:32 Dose: 100 mls/hr Documented By: EUN Magnesium Sulfate/Dextrose (Magnesium Sulfate / D5w) 1 gm in 100 mls @ 100 mls/hr IV Q1H [facility] Stop: 12/13/23 18:09 Last Admin: 12/13/23 19:36 Dose: 100 mls/hr Documented By: Infusion: 12/13/23 19:32 Dose: Infused Documented By: Admin: 12/13/23 18:32 Dose: 100 mls/hr Documented By: EUN Sodium Chloride (Nss) 1,000 mls @ 999 mls/hr IV .Q1H1M ONE Stop: 12/13/23 17:35 Last Admin: 12/13/23 16:40 Dose: 999 mls/hr Documented By: MIKE Ioversol (Optiray 320 125ml) 118 ml IV ONCE ONE Stop: 12/13/23 15:14 Last Admin: 12/13/23 15:15 Dose: 118 ml Documented By: KAVON Miscellaneous (Stat Iv Infusion Titration Per Protocol) 1 each N/A NOW STA Stop: 12/13/23 14:21 Last Admin: 12/13/23 16:00 Dose: Not Given Documented By: EUN Ondansetron HCl (Ondansetron Inj 2 Mg/Ml 2 Ml Vial) 4 mg IV NOW STA Stop: 12/13/23 14:08 Last Admin: 12/13/23 14:30 Dose: 4 mg Documented By: EUN Critical Care Time Critical Care Time: Yes Total Critical Care Time: 48 I have personally spent greater than 48 minutes of critical care time in the direct management of this patient. This includes bedside care, interpretation of diagnostic studies, and testing, discussion with consultants, patient, and family members, and other required patient management activities. This 48 minutes is in excess of all separately billable procedures. Medical Decision Making Laboratory Data Attestation: I reviewed the patient's lab results. 12/13/23 14:00 12/13/23 14:00 Lab Results 12/13/23 12/13/23 12/13/23 Range/Units 14:00 14:29 15:33 WBC 5.49 (4.8-10.8) K/ul RBC 4.86 (4.20-5.40) M/uL Hgb 14.7 (12.0-16.0) g/dl POC Hgb 14.6 (12.0-16.0) g/dl Hct 43.8 (37.0-47.0) % POC Hct 43 (37-47) % MCV 90.1 (80.0-100.0) fL MCH 30.2 (25.0-34.0) pg MCHC 33.6 (32.0-36.0) g/dL RDW Std Deviation 40.4 (36.4-46.3) fL RDW Coeff of Vero 12.2 (11.5-14.5) % Plt Count 424 H (130-400) K/uL MPV 10.1 (9.4-12.4) fL Immature Gran % (Auto) 0.4 % Neut % (Auto) 60.8 % Lymph % (Auto) 29.1 % [place] % (Auto) 8.0 % Eos % (Auto) 1.3 % Baso % (Auto) 0.4 % Neut # (Auto) 3.34 (1.40-6.50) K/uL Lymph # (Auto) 1.60 (1.20-3.40) K/uL [place] # (Auto) 0.44 (0.11-0.59) K/uL Eos # (Auto) 0.07 (0.00-0.50) K/uL Baso # (Auto) 0.02 (0.00-0.20) K/uL Immature Gran # (Auto) 0.02 (0.01-0.20) K/uL PT Cancelled 10.6 INR Cancelled 1.0 APTT Cancelled 25 PTT Ratio Cancelled 0.9 VBG pH 7.35 L (7.36-7.41) VBG pCO2 51 H (38-50) mmHg VBG pO2 25 mmHg VBG HCO3 28 mmol/L VBG O2 Saturation < 60.0 % VBG Base Excess 1.7 mEq/L POC Sodium 134 L (135-144) mmol/L Sodium 134 L (136-145) mmol/L POC Potassium 3.9 (3.3-5.0) mmol/L Potassium 4.0 (3.5-5.1) mmol/L POC Chloride 97 L (101-112) mmol/L Chloride 96 L (98-107) mmol/L Carbon Dioxide 26 (21-32) mmol/L POC Total CO2 28 (24-31) mmol/L Anion Gap 12 H (3-11) POC Anion Gap 14.0 L (16-25) mmol/L POC BUN 27 H (7-18) mg/dl BUN 23 (6-23) mg/dl Creatinine 1.06 (0.6-1.2) mg/dl POC Creatinine 1.2 (0.6-1.3) mg/dl Est Cr Clr Drug Dosing 52.4 ml/min Est GFR ( Amer) 58.2 ml/min Est GFR (Non-Af Amer) 50.3 ml/min BUN/Creatinine Ratio 21.7 H (10-20) Glucose 181 H (70-99(Fasting)) mg/dl POC Glucose (70-99) mg/dl POC Glucose (other) 179 H (70-99) mg/dl Lactate 1.9 (0.4-2.0) mmol/L Calcium 8.9 (8.6-10.3) mg/dl POC Ioniz Calcium Georgette 1.04 L (1.12-1.32) mmol/l Magnesium 1.9 (1.7-2.4) mg/dl Total Bilirubin 1.0 (0.2-1.0) mg/dl Direct Bilirubin 0.2 (0-0.2) mg/dl AST 25 (13-39) U/L ALT 32 (7-52) U/L Alkaline Phosphatase 63 (34-104) U/L Troponin I High Sens 55.8 H* (0-14) pg/ml Total Protein 6.9 (6.0-8.3) gm/dl Albumin 4.1 (3.4-5.0) gm/dl Procalcitonin 0.04 (0-0.5) ng/ml TSH (0.300-4.500) uIu/ml SARS-CoV-2 (PCR) (Negative) Influenza Type A (PCR) (Neg) Influenza Type B (PCR) (Neg) RSV (RT-PCR) (Neg) 12/13/23 12/13/23 12/13/23 Range/Units 15:35 17:15 19:40 WBC (4.8-10.8) K/ul RBC (4.20-5.40) M/uL Hgb (12.0-16.0) g/dl POC Hgb (12.0-16.0) g/dl Hct (37.0-47.0) % POC Hct (37-47) % MCV (80.0-100.0) fL MCH (25.0-34.0) pg MCHC (32.0-36.0) g/dL RDW Std Deviation (36.4-46.3) fL RDW Coeff of Vero (11.5-14.5) % Plt Count (130-400) K/uL MPV (9.4-12.4) fL Immature Gran % (Auto) % Neut % (Auto) % Lymph % (Auto) % [place] % (Auto) % Eos % (Auto) % Baso % (Auto) % Neut # (Auto) (1.40-6.50) K/uL Lymph # (Auto) (1.20-3.40) K/uL [place] # (Auto) (0.11-0.59) K/uL Eos # (Auto) (0.00-0.50) K/uL Baso # (Auto) (0.00-0.20) K/uL Immature Gran # (Auto) (0.01-0.20) K/uL PT INR APTT PTT Ratio VBG pH (7.36-7.41) VBG pCO2 (38-50) mmHg VBG pO2 mmHg VBG HCO3 mmol/L VBG O2 Saturation % VBG Base Excess mEq/L POC Sodium (135-144) mmol/L Sodium (136-145) mmol/L POC Potassium (3.3-5.0) mmol/L Potassium (3.5-5.1) mmol/L POC Chloride (101-112) mmol/L Chloride (98-107) mmol/L Carbon Dioxide (21-32) mmol/L POC Total CO2 (24-31) mmol/L Anion Gap (3-11) POC Anion Gap (16-25) mmol/L POC BUN (7-18) mg/dl BUN (6-23) mg/dl Creatinine (0.6-1.2) mg/dl POC Creatinine (0.6-1.3) mg/dl Est Cr Clr Drug Dosing ml/min Est GFR ( Amer) ml/min Est GFR (Non-Af Amer) ml/min BUN/Creatinine Ratio (10-20) Glucose (70-99(Fasting)) mg/dl POC Glucose 152 H (70-99) mg/dl POC Glucose (other) (70-99) mg/dl Lactate (0.4-2.0) mmol/L Calcium (8.6-10.3) mg/dl POC Ioniz Calcium Georgette (1.12-1.32) mmol/l Magnesium (1.7-2.4) mg/dl Total Bilirubin (0.2-1.0) mg/dl Direct Bilirubin (0-0.2) mg/dl AST (13-39) U/L ALT (7-52) U/L Alkaline Phosphatase (34-104) U/L Troponin I High Sens 55.2 H* (0-14) pg/ml Total Protein (6.0-8.3) gm/dl Albumin (3.4-5.0) gm/dl Procalcitonin (0-0.5) ng/ml TSH 1.170 (0.300-4.500) uIu/ml SARS-CoV-2 (PCR) POSITIVE (Negative) Influenza Type A (PCR) Negative (Neg) Influenza Type B (PCR) Negative (Neg) RSV (RT-PCR) Negative (Neg) Imaging Data Attestation: I personally reviewed and interpreted this imaging study as follows: My Impression: Chest x-ray negative. Airway clear. No pneumothorax. No consolidation. No cardiomegaly or cephalization.. No free air under the diaphragm. No fractures of the skeletal structures. Radiologist's Impression: Chest X-Ray 12/13/23 14:07 SINGLE VIEW CHEST CLINICAL HISTORY: Sepsis. FINDINGS: An AP, portable, upright chest radiograph is obtained. No prior studies are available for comparison at the time of dictation. The heart is enlarged noting atherosclerotic calcification of the thoracic aorta. The pulmonary vasculature is noncongested. Nonspecific interstitial thickening is likely chronic. There is bibasilar scarring/atelectasis. The lungs and pleural spaces are otherwise clear. No pneumothorax is seen. The skeletal structures are osteopenic. The bony thorax is grossly intact. IMPRESSION: Cardiomegaly with no active disease in the chest. ACT 112: Negative or not required by law. Electronically signed by: Aguilar Bravo M.D. 12/13/2023 3:04 PM Abdomen/Pelvis CT 12/13/23 14:08 CT ANGIOGRAM OF THE CHEST; CT SCAN OF THE ABDOMEN AND PELVIS WITH IV CONTRAST CLINICAL HISTORY: Dyspnea. Nausea and vomiting. COMPARISON STUDY: Chest x-ray dated 12/13/2023. TECHNIQUE: Following the IV administration of 118 of Optiray 320, CT angiogram of the chest is performed from the upper abdomen to the thoracic inlet utilizing the pulmonary embolus protocol. Images are reviewed in the axial, sagittal, coronal planes. 3-D MIPS images are created and assessed. Subsequently, CT scan of the abdomen and pelvis was performed from the lung bases to the proximal femora. Images are reviewed in the axial, sagittal, and coronal planes. IV contrast was administered without complication. A dose lowering technique was utilized adhering to the principles of ALARA. CT DOSE: 2211.94 mGy.cm FINDINGS: CHEST: Thyroid: Imaged portions of the thyroid gland are normal in size and attenuation. Thoracic aorta: There is atherosclerotic calcification of the thoracic aorta, which is normal in caliber and demonstrates standard 3-vessel arch anatomy. No dissection is seen. Pulmonary vasculature: The main pulmonary arteries are dilated suggesting pulmonary artery hypertension. There are no filling defects identified in the main, lobar, or segmental pulmonary arteries to indicate pulmonary embolus. Heart: The heart is mildly enlarged and without pericardial effusion. The mitral annulus is calcified. There are scattered coronary artery calcifications Lungs and pleural spaces: There is no airspace consolidation or pleural effusion. Scarring/atelectasis is noted at the lung bases. The trachea and central airways are clear. Diffuse peribronchial thickening is observed there are scattered calcified granulomas. Mediastinum: There is no mediastinal lymphadenopathy. Alva: There are calcified left hilar nodes. No adenopathy is seen. Axillae: There is no axillary lymphadenopathy. Bony thorax: The skeletal structures are osteopenic. Degenerative change is noted in the shoulders and thoracic spine. A large hemangioma is noted in the body of T11. No lytic or blastic lesions are identified. ABDOMEN AND PELVIS: Liver: The contrast-enhanced liver is normal in size, contour, and attenuation. There is no intrahepatic biliary ductal dilatation. The hepatic veins and portal veins are patent. There are scattered calcified hepatic granulomas. Gallbladder: Unremarkable. Spleen: Normal in size and attenuation. There are calcified splenic granulomas. Pancreas: Mild atrophic and grossly unremarkable. Adrenal glands: Unremarkable. Kidneys: The contrast enhanced kidneys are normal in size and without hydronephrosis. The kidneys enhance symmetrically. Abdominal vasculature: The abdominal aorta is normal in course and caliber noting mild atherosclerotic calcification. Stomach and bowel: A small hiatal hernia is noted. No bowel obstruction is seen. There is mild colonic diverticulosis without CT evidence of acute diverticulitis. The appendix is well-visualized and normal. Peritoneum: There is no intraperitoneal free air or abdominal ascites. There is a fat-containing umbilical hernia. Lymphadenopathy: None. Pelvic viscera: The bladder is normal as visualized. The endometrium appears thickened for age, measuring up to 14 mm. A 14 mm simple cystic focus is seen in the right ovary. Skeletal structures: The skeletal structures are osteopenic. There is mild to moderate lumbosacral spondylosis. No lytic or blastic lesions are seen. IMPRESSION: 1. There is no evidence of pulmonary embolus in the main, lobar, or segmental pulmonary arteries. 2. There is no airspace consolidation or pleural effusion. 3. No acute infectious or inflammatory findings are identified in the abdomen or pelvis. 4. Mild colonic diverticulosis without CT evidence of acute diverticulitis. 5. The endometrium appears thickened for age. This is not well assessed by CT, and nonemergent follow-up with gynecology and pelvic ultrasound is recommended for further assessment. 6. Additional findings as above. ACT 112: Negative or not required by law. Electronically signed by: Aguilar Bravo M.D. 12/13/2023 3:45 PM Chest CTA 12/13/23 14:08 CT ANGIOGRAM OF THE CHEST; CT SCAN OF THE ABDOMEN AND PELVIS WITH IV CONTRAST CLINICAL HISTORY: Dyspnea. Nausea and vomiting. COMPARISON STUDY: Chest x-ray dated 12/13/2023. TECHNIQUE: Following the IV administration of 118 of Optiray 320, CT angiogram of the chest is performed from the upper abdomen to the thoracic inlet utilizing the pulmonary embolus protocol. Images are reviewed in the axial, sagittal, coronal planes. 3-D MIPS images are created and assessed. Subsequently, CT scan of the abdomen and pelvis was performed from the lung bases to the proximal femora. Images are reviewed in the axial, sagittal, and coronal planes. IV contrast was administered without complication. A dose lowering technique was utilized adhering to the principles of ALARA. CT DOSE: 2211.94 mGy.cm FINDINGS: CHEST: Thyroid: Imaged portions of the thyroid gland are normal in size and attenuation. Thoracic aorta: There is atherosclerotic calcification of the thoracic aorta, which is normal in caliber and demonstrates standard 3-vessel arch anatomy. No dissection is seen. Pulmonary vasculature: The main pulmonary arteries are dilated suggesting pulmonary artery hypertension. There are no filling defects identified in the main, lobar, or segmental pulmonary arteries to indicate pulmonary embolus. Heart: The heart is mildly enlarged and without pericardial effusion. The mitral annulus is calcified. There are scattered coronary artery calcifications Lungs and pleural spaces: There is no airspace consolidation or pleural effusion. Scarring/atelectasis is noted at the lung bases. The trachea and central airways are clear. Diffuse peribronchial thickening is observed there are scattered calcified granulomas. Mediastinum: There is no mediastinal lymphadenopathy. Alva: There are calcified left hilar nodes. No adenopathy is seen. Axillae: There is no axillary lymphadenopathy. Bony thorax: The skeletal structures are osteopenic. Degenerative change is noted in the shoulders and thoracic spine. A large hemangioma is noted in the body of T11. No lytic or blastic lesions are identified. ABDOMEN AND PELVIS: Liver: The contrast-enhanced liver is normal in size, contour, and attenuation. There is no intrahepatic biliary ductal dilatation. The hepatic veins and portal veins are patent. There are scattered calcified hepatic granulomas. Gallbladder: Unremarkable. Spleen: Normal in size and attenuation. There are calcified splenic granulomas. Pancreas: Mild atrophic and grossly unremarkable. Adrenal glands: Unremarkable. Kidneys: The contrast enhanced kidneys are normal in size and without hydronephrosis. The kidneys enhance symmetrically. Abdominal vasculature: The abdominal aorta is normal in course and caliber noting mild atherosclerotic calcification. Stomach and bowel: A small hiatal hernia is noted. No bowel obstruction is seen. There is mild colonic diverticulosis without CT evidence of acute diverticulitis. The appendix is well-visualized and normal. Peritoneum: There is no intraperitoneal free air or abdominal ascites. There is a fat-containing umbilical hernia. Lymphadenopathy: None. Pelvic viscera: The bladder is normal as visualized. The endometrium appears thickened for age, measuring up to 14 mm. A 14 mm simple cystic focus is seen in the right ovary. Skeletal structures: The skeletal structures are osteopenic. There is mild to moderate lumbosacral spondylosis. No lytic or blastic lesions are seen. IMPRESSION: 1. There is no evidence of pulmonary embolus in the main, lobar, or segmental pulmonary arteries. 2. There is no airspace consolidation or pleural effusion. 3. No acute infectious or inflammatory findings are identified in the abdomen or pelvis. 4. Mild colonic diverticulosis without CT evidence of acute diverticulitis. 5. The endometrium appears thickened for age. This is not well assessed by CT, and nonemergent follow-up with gynecology and pelvic ultrasound is recommended for further assessment. 6. Additional findings as above. ACT 112: Negative or not required by law. Electronically signed by: Aguilar Bravo M.D. 12/13/2023 3:45 PM ECG Data Attestation: I personally reviewed and interpreted this ECG as follows: Additional Comments: EKG #1 at 1415: Atrial fibrillation with a rate of 125. QRS [address] elevation or ST depression. EKG #2 at 1418 status post Cardizem 20 mg IV push: Atrial fibrillation with a rate of 106. QRS [address] elevation or ST depression. [facility] Narrative 1406: The patient was evaluated in room B8. A complete history and physical exam was performed Cardiac monitoring: An order was placed for continuous cardiac monitoring. The monitor shows a rate of 120-160 with atrial fibrilation rhythm interpreted by me Large [place] IV access was obtained patient was started on IV hydration. Cardizem 20 mg IV push was delivered to the patient which improved the patient's ventricular rate. Patient be started Cardizem drip. 1605: Vital signs stable on Cardizem drip. Labs within normal limits with exception of high-sensitivity troponin of 55.2. Discussed case with [facility] hospitalist team Esteban Nathan NP and he states he will evaluate the patient with his attending and determine anticoagulation for the patient. Impression & Plan Atrial fibrillation with rapid ventricular response, COVID-19, Elevated troponin Discharge Plan Visit Data Chief Complaint: Illness Stated Complaint: VOMIT, TESTED POS COVID, FEELING WORSE ED Provider: Jose Oquendo Discharge Problem: Atrial fibrillation with rapid ventricular response, COVID-19, Elevated troponin Patient Disposition: Admitted As Inpatient Forms Stand Alone Forms: My [facility] Prescriptions Prescriptions: No Action metformin 500 mg tablet 500 mg PO QAM amlodipine 5 mg tablet 5 mg PO QAM simvastatin 40 mg tablet 40 mg PO HS lisinopril 40 mg tablet 40 mg PO QAM Referrals Referrals: Gill Christina PA-C [Primary Care Provider] -
[2023-12-13] MEDS: LACTATED RINGER'S 1,000 ML IV SCH (22:13)
[2023-12-13] MEDS: guaiFENesin 600 MG TABCR PO SCH (22:14)
[2023-12-13] MEDS: SIMVASTATIN 10 MG TAB PO SCH (22:14)
[2023-12-13 23:43] LABS: ANTI-Xa, UFH(UnfractionatedHep 0.58 IU/ml (0.3-0.7)
[2023-12-14 06:42] LABS: Basophils # (auto) 0.02 K/uL (0.00-0.20); Basophils % (auto) 0.3 %; Eosinophils # (auto) 0.15 K/uL (0.00-0.50); Eosinophils % (auto) 2.2 %; Hematocrit (blood only) 35.8 % (37.0-47.0); Hemoglobin 12.1 g/dl (12.0-16.0); Immature Granulocytes # (auto) 0.04 K/uL (0.01-0.20); Immature Granulocytes % (auto) 0.6 %; Lymphocytes # (auto) 1.61 K/uL (1.20-3.40); Lymphocytes % (auto) 23.6 %; Mean Corpuscular Hemoglobin 30.8 pg (25.0-34.0); Mean Corpuscular Hgb Conc 33.8 g/dL (32.0-36.0); Mean Corpuscular Volume 91.1 fL (80.0-100.0); Mean Platelet Volume 10.1 fL (9.4-12.4); Monocytes # (auto) 0.58 K/uL (0.11-0.59); Monocytes % (auto) 8.5 %; Neutrophils # (auto) 4.43 K/uL (1.40-6.50); Neutrophils % (auto) 64.8 %; Platelet Count 302 K/uL (130-400); RDW Coefficient of Variation 12.4 % (11.5-14.5); RDW Standard Deviation 41.5 fL (36.4-46.3); Red Blood Count 3.93 M/uL (4.20-5.40); White Blood Count 6.83 K/ul (4.8-10.8)
[2023-12-14 07:05] LABS: Albumin Globulin Ratio 1.7 (0.9-2); Albumin Level 3.4 gm/dl (3.4-5.0); BUN Creatinine Ratio 24.3 (10-20); Calcium 7.8 mg/dl (8.6-10.3); Creatinine Clr Calc Pharmacy 79.4 ml/min; Est GFR (African American) 96.2 ml/min; Magnesium 2.2 mg/dl (1.7-2.4); Potassium 3.8 mmol/L (3.5-5.1); Total Protein 5.4 gm/dl (6.0-8.3)
[2023-12-14 07:17] LABS: Prothrombin Time 10.8 Seconds (9.0-12.0)
[2023-12-14 07:23] LABS: ANTI-Xa, UFH(UnfractionatedHep 0.42 IU/ml (0.3-0.7)
--- NOTE | 2023-12-14 13:39 | Hospitalist Progress Note ---
Date of Service December 14, 2023 Assessment & Plan (1) Atrial fibrillation with rapid ventricular response: Plan: New diagnosis Currently on diltiazem and heparin drip Start diltiazem CD 120 mg now and titrate off of diltiazem drip TTE ordered, pending Will transition heparin to Eliquis TSH within normal limits Most likely provoked by COVID-19 infection and dehydration (2) Nausea and vomiting: Plan: -Likely due to covid 19 infection -No acute findings on CT of the abd/pelvis w/con -Will continue IV hydration and prn zofran for now (3) COVID-19: Plan: -Patient reports positive home test on 12/12/23 -Start Covid 19 precautions -Will obtain official testing on admission -Patient is not hypoxic, supportive care for now -Incentive spirometry, prn guaifenesin, prn O2 to keep SpO2 at or above 92% (4) Abnormal CT scan, pelvis: Plan: -CT scan of the abd/pelvis w/IV con today mentions increased thickening of the endometrium for the patient's age -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 -Please ensure patient has follow up scheduled before discharge (5) Diarrhea: Plan: -Patient reports multiple episodes of non-blood diarrhea over the past week -Has improved as the week progressed, likely due to Covid 19 infection -No recent antibiotic use -If she continues to have diarrhea will obtain stool studies -Hold antidiarrheals for now (6) Elevated troponin: Plan: -Initial high sen trop elevated at 55 --> 55 on 2 hour repeat -Patient denies chest pain -Likely due to demand ischemia from afib RVR, dehydration, and hypotension -Continue treatment per Afib RVR plan, continue IV hydration -Follow TTE tomorrow -Switch from heparin drip to Eliquis (7) HTN (hypertension): Plan: -Currently stable -Hold amlodipine and lisinopril for now with hypotension at the time of admission Started on diltiazem p.o. (8) DMII (diabetes mellitus, type 2): Plan: -Hold metformin -Monitor BSG ACHS, goal is 110-160 for now -Not on insulin at home -Start CF 50 and CR of 15 for now -Adjust regimen as needed (9) Hyperlipidemia: Plan: -Continue statin Admission and Anticipated Discharge Date Admission Date: December 13, 2023 Subjective Patient feels well. Denies chest pain, shortness of breath, palpitation. Review of Systems Review of Systems: All systems reviewed & are unremarkable except as noted in Subjective Physical Exam Physical Exam: General: Awake, conversant Heart: S1, S2/regular rate and rhythm, no murmur rubs or gallops Lungs: Clear to auscultation bilaterally. Normal effort Abdomen: Soft/nontender/nondistended. No hepatosplenomegaly Extremities: No clubbing/cyanosis. No edema Behavior: Appropriate, cooperative Results & Data Results & Data Vital Signs (Past 12 Hours) Vital Signs Temp Pulse Resp BP Pulse Ox O2 Del Method 12/14/23 11:53 36.6 C 107 H 20 122/94 95 Room Air 12/14/23 07:47 36.7 C 96 H 20 121/86 97 Room Air 12/14/23 03:00 36.5 C 71 16 126/71 95 Room Air Laboratory Results Abnormal lab results 12/13/23 12/13/23 12/13/23 Range/Units 14:00 14:29 15:33 RBC (4.20-5.40) M/uL Hct (37.0-47.0) % Plt Count 424 H (130-400) K/uL VBG pH 7.35 L (7.36-7.41) VBG pCO2 51 H (38-50) mmHg POC Sodium 134 L (135-144) mmol/L Sodium 134 L (136-145) mmol/L POC Chloride 97 L (101-112) mmol/L Chloride 96 L (98-107) mmol/L Anion Gap 12 H (3-11) POC Anion Gap 14.0 L (16-25) mmol/L POC BUN 27 H (7-18) mg/dl BUN/Creatinine Ratio 21.7 H (10-20) Glucose 181 H (70-99(Fasting)) mg/dl POC Glucose (70-99) mg/dl POC Glucose (other) 179 H (70-99) mg/dl Calcium (8.6-10.3) mg/dl POC Ioniz Calcium Georgette 1.04 L (1.12-1.32) mmol/l Troponin I High Sens 55.8 H* (0-14) pg/ml Total Protein (6.0-8.3) gm/dl Globulin (2.5-4.0) gm/dl 12/13/23 12/13/23 12/13/23 Range/Units 15:35 19:40 21:14 RBC (4.20-5.40) M/uL Hct (37.0-47.0) % Plt Count (130-400) K/uL VBG pH (7.36-7.41) VBG pCO2 (38-50) mmHg POC Sodium (135-144) mmol/L Sodium (136-145) mmol/L POC Chloride (101-112) mmol/L Chloride (98-107) mmol/L Anion Gap (3-11) POC Anion Gap (16-25) mmol/L POC BUN (7-18) mg/dl BUN/Creatinine Ratio (10-20) Glucose (70-99(Fasting)) mg/dl POC Glucose 152 H (70-99) mg/dl POC Glucose (other) (70-99) mg/dl Calcium (8.6-10.3) mg/dl POC Ioniz Calcium Georgette (1.12-1.32) mmol/l Troponin I High Sens 55.2 H* 48.5 H (0-14) pg/ml Total Protein (6.0-8.3) gm/dl Globulin (2.5-4.0) gm/dl 12/14/23 12/14/23 12/14/23 Range/Units 02:52 05:50 07:43 RBC 3.93 L (4.20-5.40) M/uL Hct 35.8 L (37.0-47.0) % Plt Count (130-400) K/uL VBG pH (7.36-7.41) VBG pCO2 (38-50) mmHg POC Sodium (135-144) mmol/L Sodium (136-145) mmol/L POC Chloride (101-112) mmol/L Chloride (98-107) mmol/L Anion Gap (3-11) POC Anion Gap (16-25) mmol/L POC BUN (7-18) mg/dl BUN/Creatinine Ratio 24.3 H (10-20) Glucose 165 H (70-99(Fasting)) mg/dl POC Glucose 157 H (70-99) mg/dl POC Glucose (other) (70-99) mg/dl Calcium 7.8 L (8.6-10.3) mg/dl POC Ioniz Calcium Georgette (1.12-1.32) mmol/l Troponin I High Sens 41.4 H (0-14) pg/ml Total Protein 5.4 L D (6.0-8.3) gm/dl Globulin 2.0 L (2.5-4.0) gm/dl 12/14/23 12/14/23 Range/Units 10:25 11:46 RBC (4.20-5.40) M/uL Hct (37.0-47.0) % Plt Count (130-400) K/uL VBG pH (7.36-7.41) VBG pCO2 (38-50) mmHg POC Sodium (135-144) mmol/L Sodium (136-145) mmol/L POC Chloride (101-112) mmol/L Chloride (98-107) mmol/L Anion Gap (3-11) POC Anion Gap (16-25) mmol/L POC BUN (7-18) mg/dl BUN/Creatinine Ratio (10-20) Glucose (70-99(Fasting)) mg/dl POC Glucose 142 H (70-99) mg/dl POC Glucose (other) (70-99) mg/dl Calcium (8.6-10.3) mg/dl POC Ioniz Calcium Georgette (1.12-1.32) mmol/l Troponin I High Sens 26.2 H D (0-14) pg/ml Total Protein (6.0-8.3) gm/dl Globulin (2.5-4.0) gm/dl Diagnostic Findings Chest X-Ray 12/13/23 14:07 SINGLE VIEW CHEST CLINICAL HISTORY: Sepsis. FINDINGS: An AP, portable, upright chest radiograph is obtained. No prior studies are available for comparison at the time of dictation. The heart is enlarged noting atherosclerotic calcification of the thoracic aorta. The pulmonary vasculature is noncongested. Nonspecific interstitial thickening is likely chronic. There is bibasilar scarring/atelectasis. The lungs and pleural spaces are otherwise clear. No pneumothorax is seen. The skeletal structures are osteopenic. The bony thorax is grossly intact. IMPRESSION: Cardiomegaly with no active disease in the chest. ACT 112: Negative or not required by law. Electronically signed by: Aguilar Bravo M.D. 12/13/2023 3:04 PM Abdomen/Pelvis CT 12/13/23 14:08 CT ANGIOGRAM OF THE CHEST; CT SCAN OF THE ABDOMEN AND PELVIS WITH IV CONTRAST CLINICAL HISTORY: Dyspnea. Nausea and vomiting. COMPARISON STUDY: Chest x-ray dated 12/13/2023. TECHNIQUE: Following the IV administration of 118 of Optiray 320, CT angiogram of the chest is performed from the upper abdomen to the thoracic inlet utilizing the pulmonary embolus protocol. Images are reviewed in the axial, sagittal, coronal planes. 3-D MIPS images are created and assessed. Subsequently, CT scan of the abdomen and pelvis was performed from the lung bases to the proximal femora. Images are reviewed in the axial, sagittal, and coronal planes. IV contrast was administered without complication. A dose lowering technique was utilized adhering to the principles of ALARA. CT DOSE: 2211.94 mGy.cm FINDINGS: CHEST: Thyroid: Imaged portions of the thyroid gland are normal in size and attenuation. Thoracic aorta: There is atherosclerotic calcification of the thoracic aorta, which is normal in caliber and demonstrates standard 3-vessel arch anatomy. No dissection is seen. Pulmonary vasculature: The main pulmonary arteries are dilated suggesting pulmonary artery hypertension. There are no filling defects identified in the main, lobar, or segmental pulmonary arteries to indicate pulmonary embolus. Heart: The heart is mildly enlarged and without pericardial effusion. The mitral annulus is calcified. There are scattered coronary artery calcifications Lungs and pleural spaces: There is no airspace consolidation or pleural effusion. Scarring/atelectasis is noted at the lung bases. The trachea and central airways are clear. Diffuse peribronchial thickening is observed there are scattered calcified granulomas. Mediastinum: There is no mediastinal lymphadenopathy. Alva: There are calcified left hilar nodes. No adenopathy is seen. Axillae: There is no axillary lymphadenopathy. Bony thorax: The skeletal structures are osteopenic. Degenerative change is noted in the shoulders and thoracic spine. A large hemangioma is noted in the body of T11. No lytic or blastic lesions are identified. ABDOMEN AND PELVIS: Liver: The contrast-enhanced liver is normal in size, contour, and attenuation. There is no intrahepatic biliary ductal dilatation. The hepatic veins and portal veins are patent. There are scattered calcified hepatic granulomas. Gallbladder: Unremarkable. Spleen: Normal in size and attenuation. There are calcified splenic granulomas. Pancreas: Mild atrophic and grossly unremarkable. Adrenal glands: Unremarkable. Kidneys: The contrast enhanced kidneys are normal in size and without hydronephrosis. The kidneys enhance symmetrically. Abdominal vasculature: The abdominal aorta is normal in course and caliber noting mild atherosclerotic calcification. Stomach and bowel: A small hiatal hernia is noted. No bowel obstruction is seen. There is mild colonic diverticulosis without CT evidence of acute diverticulitis. The appendix is well-visualized and normal. Peritoneum: There is no intraperitoneal free air or abdominal ascites. There is a fat-containing umbilical hernia. Lymphadenopathy: None. Pelvic viscera: The bladder is normal as visualized. The endometrium appears thickened for age, measuring up to 14 mm. A 14 mm simple cystic focus is seen in the right ovary. Skeletal structures: The skeletal structures are osteopenic. There is mild to moderate lumbosacral spondylosis. No lytic or blastic lesions are seen. IMPRESSION: 1. There is no evidence of pulmonary embolus in the main, lobar, or segmental pulmonary arteries. 2. There is no airspace consolidation or pleural effusion. 3. No acute infectious or inflammatory findings are identified in the abdomen or pelvis. 4. Mild colonic diverticulosis without CT evidence of acute diverticulitis. 5. The endometrium appears thickened for age. This is not well assessed by CT, and nonemergent follow-up with gynecology and pelvic ultrasound is recommended for further assessment. 6. Additional findings as above. ACT 112: Negative or not required by law. Electronically signed by: Aguilar Bravo M.D. 12/13/2023 3:45 PM Chest CTA 12/13/23 14:08 CT ANGIOGRAM OF THE CHEST; CT SCAN OF THE ABDOMEN AND PELVIS WITH IV CONTRAST CLINICAL HISTORY: Dyspnea. Nausea and vomiting. COMPARISON STUDY: Chest x-ray dated 12/13/2023. TECHNIQUE: Following the IV administration of 118 of Optiray 320, CT angiogram of the chest is performed from the upper abdomen to the thoracic inlet utilizing the pulmonary embolus protocol. Images are reviewed in the axial, sagittal, coronal planes. 3-D MIPS images are created and assessed. Subsequently, CT scan of the abdomen and pelvis was performed from the lung bases to the proximal femora. Images are reviewed in the axial, sagittal, and coronal planes. IV contrast was administered without complication. A dose lowering technique was utilized adhering to the principles of ALARA. CT DOSE: 2211.94 mGy.cm FINDINGS: CHEST: Thyroid: Imaged portions of the thyroid gland are normal in size and attenuation. Thoracic aorta: There is atherosclerotic calcification of the thoracic aorta, which is normal in caliber and demonstrates standard 3-vessel arch anatomy. No dissection is seen. Pulmonary vasculature: The main pulmonary arteries are dilated suggesting pulmonary artery hypertension. There are no filling defects identified in the ma in, lobar, or segmental pulmonary arteries to indicate pulmonary embolus. Heart: The heart is mildly enlarged and without pericardial effusion. The mitral annulus is calcified. There are scattered coronary artery calcifications Lungs and pleural spaces: There is no airspace consolidation or pleural effusion. Scarring/atelectasis is noted at the lung bases. The trachea and central airways are clear. Diffuse peribronchial thickening is observed there are scattered calcified granulomas. Mediastinum: There is no mediastinal lymphadenopathy. Alva: There are calcified left hilar nodes. No adenopathy is seen. Axillae: There is no axillary lymphadenopathy. Bony thorax: The skeletal structures are osteopenic. Degenerative change is noted in the shoulders and thoracic spine. A large hemangioma is noted in the body of T11. No lytic or blastic lesions are identified. ABDOMEN AND PELVIS: Liver: The contrast-enhanced liver is normal in size, contour, and attenuation. There is no intrahepatic biliary ductal dilatation. The hepatic veins and portal veins are patent. There are scattered calcified hepatic granulomas. Gallbladder: Unremarkable. Spleen: Normal in size and attenuation. There are calcified splenic granulomas. Pancreas: Mild atrophic and grossly unremarkable. Adrenal glands: Unremarkable. Kidneys: The contrast enhanced kidneys are normal in size and without hydronephrosis. The kidneys enhance symmetrically. Abdominal vasculature: The abdominal aorta is normal in course and caliber noting mild atherosclerotic calcification. Stomach and bowel: A small hiatal hernia is noted. No bowel obstruction is seen. There is mild colonic diverticulosis without CT evidence of acute diverticulitis. The appendix is well-visualized and normal. Peritoneum: There is no intraperitoneal free air or abdominal ascites. There is a fat-containing umbilical hernia. Lymphadenopathy: None. Pelvic viscera: The bladder is normal as visualized. The endometrium appears thickened for age, measuring up to 14 mm. A 14 mm simple cystic focus is seen in the right ovary. Skeletal structures: The skeletal structures are osteopenic. There is mild to moderate lumbosacral spondylosis. No lytic or blastic lesions are seen. IMPRESSION: 1. There is no evidence of pulmonary embolus in the main, lobar, or segmental pulmonary arteries. 2. There is no airspace consolidation or pleural effusion. 3. No acute infectious or inflammatory findings are identified in the abdomen or pelvis. 4. Mild colonic diverticulosis without CT evidence of acute diverticulitis. 5. The endometrium appears thickened for age. This is not well assessed by CT, and nonemergent follow-up with gynecology and pelvic ultrasound is recommended for further assessment. 6. Additional findings as above. ACT 112: Negative or not required by law. Electronically signed by: Aguilar Bravo M.D. 12/13/2023 3:45 PM PG Care Time/CCT Total # of Minutes Spent Total Time Spent with Patient: Total time spent is greater than 50% in coordination of care (as documented) at patient's floor/unit and/or counseling patient: Coding Level of Care Code 60282 SUB INP/OBS CARE 2/35MIN Diagnoses Atrial fibrillation with rapid ventricular response I48.91 Nausea and vomiting R11.2 COVID-[address] scan, pelvis R93.5 Diarrhea R19.7 Elevated troponin R79.89 HTN (hypertension) I10 DMII (diabetes mellitus, type 2) E11.9 Hyperlipidemia E78.5
[2023-12-14] MEDS: dilTIAZem HCL 120 MG CAPCR PO SCH (14:38)
[2023-12-14] MEDS: ACETAMINOPHEN 325 MG TAB PO PRN (19:31)
--- OUTSIDE RECORDS SUMMARY | 2023-12-14 19:31 | External Medical Summary | Continuity of Care Document ---
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 Name Role Phone Gill Christina Primary Care Physician [phone] Encounter [id number] Date(s): 07/19/23 - 07/19/[address], [address] [place] [address] [phone] Encounter Diagnosis Essential (primary) hypertension(Final) - Discharge Disposition: Home or Self Care Attending Physician: DEEPAK Christina Jessica A Allergies, Adverse Reactions, Alerts No Known Allergies Immunizations Given and Recorded Vaccine Date Status Refusal Reason influenza virus vaccine, inactivated 07/01/22 Give n SARS-CoV-2 (COVID-19) mRNA BNT-162b2 vax 1 06/18/21 Recorded tetanus/diphtheria/pertuss, acel (Tdap) 02/26/15 R ecorded tetanus/diphtheria/pertuss, acel (Tdap) 07/24/04 R ecorded pneumococcal 13-valent vaccine 09/01/12 Recorded hepatitis B pediatric vaccine 01/18/94 Recorded hepatitis B pediatric vaccine 08/17/93 Recorded hepatitis B pediatric vaccine 07/20/93 Recorded 1Result Comment: 2021-12-22: Historical information-source unspecified Medications lisinopril 20 mg oral tablet Start: 07/11/23 9:48:00 EST, 2 tab, PO, Daily, Disp# 60 tab, Note to Pharmacy: cancel 10 mg dose, [id number] Start Date: 07/11/23 Stop Date: 08/10/23 Status: Ordered meloxicam 15 mg oral tablet Start: 07/01/22 10:46:00 EST, 1 tab, PO, Daily, Disp# 30 tab, Refills: 5, Pharmacy: [facility] #[id number] Start Date: 07/01/22 Stop Date: 12/28/22 Status: Ordered metFORMIN 500 mg oral tablet Start: 12/01/22 16:22:00 EDT, See Instructions, Disp# 90 tab, Refills: 3, take 1 tablet by mouth once daily, Pharmacy: [facility] #[id number] Start Date: 12/01/22 Status: Ordered PreserVision AREDS 2 oral capsule Start: 12/22/21 9:35:00 EDT Start Date: 12/22/21 Status: Ordered simvastatin 40 mg oral tablet Start: 03/28/23 11:55:00 EDT, 1 tab, PO, qhs, Disp# 90 tab, Refills: 3, Pharmacy: [facility] #[id number] Start Date: 03/28/23 Status: Ordered Vitamin C 500 mg oral capsule Start: 10/20/22 13:09:00 EST Start Date: 10/20/22 Status: Ordered Vitamin D3 5000 IU Start: 03/24/22 8:37:00 EDT, Vitamin D3 5000 IU, eRx Product Type: Supply, 1 tab, PO, Daily, Disp# 90 tab, Refills: 1, Pharmacy [facility] #[id number] Start Date: 03/24/22 Status: Ordered Mental Status 07/19/23 Barriers to Learning one year None evide nt Mandatory Health Literacy Documentation Yes Health Literacy Communication Barriers N ever Primary Language Cameroonian Problem List Condition Confirmation Course Effective Dates Status H ealth Status Informant Ankle edema Confirmed Active Benign hypertension without CHF Confirmed Active Benign recurrent vertigo Confirmed Active Chronic osteoarthritis Confirmed Active Hyperlipidemia LDL goal <100 Confirmed Active Osteoarthritis of right hip Confirmed Active Right groin pain Confirmed Active Type 2 diabetes, HbA1C goal < 8% Confirmed Active Vitamin D deficiency Confirmed Active Procedures Procedure Date Related Diagnosis Body Site Status Mammogram 1 07/05/23 Completed Bone density scan 2 07/05/22 Compl eted Mammogram 3 06/29/22 Completed Exercise stress test 4 09/11/21 Co mpleted Mammogram 5 06/25/21 Completed X-ray of right knee 6 05/26/21 Com pleted Mammogram 7 06/23/20 Completed Ankle joint operations 1999 Co mpleted [address] [place] [address] Impression: ACR BI-RADS CATEGORY 2: BENIGN 1. [facility] of [facility]: 1. AP spine L1-L4 T-score: -1.9 2. Femur neck left T-score: -1.8 3. Femur neck right T-score: -1.9 4. Femur total left T-score: -0.5 5. Femur total right T-score: -0.5 6. Z-score: -0.1. BMD is considerered WNL relative to age [facility] Impression: ACR BI-RADS CATEGORY 1: NEGATIVE 1. [facility]: 1. Exercised according to the MODBRUCE for 3 minutes, achieving a work level of Max METS: 3.40. Resting HR of 76, deirdre to 121. Value represents 83% of the maximal, age-predicted HR. Resting B/P: 118/50, deirdre to 149/63. Test stoppe due to dyspnea, fatigue. [facility] Impression: ACR BI-RADS CATEGORY 2: BENIGN 1. No evidence of malignancy [facility] Impression: 1. Mild tricompartmental osteoarthritis 2. No fracture or dislocation within the right knee 3. Small knee effusion [facility] Impression: ACR BI-RADS CATEGORY 2: BENIGN 1. No evidence of malignancy Results Laboratory List Name Date Basic Metabolic Panel (BASIC METAB PANEL ) 07/19/23 Most recent to oldest [Reference Range]: 1 eGFR CKD-EPI [>60 mL/min/1.73 m2] 71 mL/ min/1.73 m2 1 (07/19/23 9:41 AM) Estimated CrCl 67.49 mL/min (07/19/23 10:16 AM) Anion Gap [5-14 mmol/L] 5 mmol/L (07/19/23 9:41 AM) BUN [7-20 mg/dL] 15 mg/dL (07/19/23 9:41 AM) Ca [8.4-10.2 mg/dL] 9.0 mg/dL (07/19/23 9:41 AM) Cl- [96-107 mmol/L] 105 mmol/L (07/19/23 9:41 AM) HCO3 [22-30 mmol/L] 30 mmol/L (07/19/23 9:41 AM) Cret [0.60-1.00 mg/dL] 0.85 mg/dL (07/19/23 9:41 AM) Glu [74-106 mg/dL] 141 mg/dL *HI* (07/19/23 9:41 AM) K [3.5-5.1 mmol/L] 4.4 mmol/L (07/19/23 9:41 AM) Na [137-145 mmol/L] 140 mmol/L (07/19/23 9:41 AM) 1Result Comment: Testing Performed By: Dept of Pathology [facility] Jeovany Zimmer, [address] [facility] [place], [place] [address] Vital Signs Most recent to oldest [Reference Range]: 1 2 Heart Rate 78 bpm (07/19/23 9:34 AM) Blood Pressure 178/96mmHg (07/19/23 9:35 AM) 184/84mmHg (07/19/23 9:34 AM) Cuff Pulse Pressure 100 mmHg (07/19/23 9:34 AM) BP Location # 1 Left Arm, Other: home wrist cuff (07/19/23 9:35 AM) Left Arm (07/19/23 9:34 AM) Social History Social History Type Response Smoking Status Never smoked cigaret irma Sex Patient Care team information Care Team Personnel Name: DEEPAK Christina, Gill Crowley Position: Physician Josht Jamest - Family Med Member Role: Primary Care Provider Address: Address: [address] [place] [address] [address] [place] [address]
--- OUTSIDE RECORDS SUMMARY | 2023-12-14 19:31 | External Medical Summary | Summary of Care ---
Author Name Unknown Organization [facility] Address [address] [facility] [address] Phone [phone] Care Team Providers Care Cosmetic Sales Advisor Name Role Phone Britton Miller MD Primary Care Provider Perla vailable Reason for Visit * Reason Comments Follow Up Skin check- no acute concerns at this time Encounter Details Date Type Department Care Team (Late st Contact Info) Description 10/13/2023 1:00 PM EST [facility] [address] [facility] [place] [address] Johanne Sellers MD [address] [facility] [place] [address] Seborrheic keratosis*; Disseminated superficial actinic porokeratosis (DSAP); History of nonmelanoma skin cancer; Other skin changes due to chronic exposure to nonionizing radiation Allergies No known active allergiesdocumented as of this encounter (statuses as of 10/22/2023) Medications Medication Sig Dispensed Refills Start Date End Date Status ASPIRIN 81 MG PO TABS Take by mouth. 0 Active MECLIZINE HCL 25 MG PO TABS As directed when traveling 0 08/13/2014 Active metFORMIN (GLUCOPHAGE) 500 MG Tablet Take 1 Tablet by mouth in the morning. 0 08/28/2015 Active Multiple Vitamins-Minerals (PRESERVISION AREDS 2+MULTI VIT) CAPS Take by mouth. 0 Active Multiple Vitamins-Minerals (PRESERVISION AREDS 2) Capsule Take 1 Capsule by mouth in the morning and 1 Capsule before bedtime. 0 09/11/2019 Active Simvastatin 40 MG Oral Tablet (Zocor) Take 1 Tablet by mouth in the morning. 0 09/11/2020 Active Vitamin D3 1.25 MG (94552 UT) Oral Capsule take 1 tablet by mouth daily 0 12/23/2021 Active Vitamin C 500 MG Oral Tablet Chewable Take 1 Tablet by mouth in the morning. 0 Active amLODIPine Besylate 5 MG Oral Tablet (Norvasc) Take 1 Tablet by mouth in the morning. 0 Active Lisinopril 10 MG Oral Tablet (Prinivil) Take 1 Tablet by mouth in the morning. 0 10/22/2023 Discontinued (Medication List Clean Up) documented as of this encounter (statuses as of 10/22/2023) Active Problems Problem Noted Date Diagnosed Date History of nonmelanoma skin cancer 09/07/2019 Overview: BCC left anterior shoulder 10/03 BCC left mid back 10/03 ACUTE URI NOS 12/10/1999 FAM HX-DIABETES MELLITUS 12/10/1999 FAM HX-ISCHEM HEART DIS 12/10/1999 documented as of this encounter (statuses as of 10/22/2023) Social History Tobacco Use Types Packs/Day Years Used Date Smoking Tobacco: Never Smokeless Tobacco: Never Alcohol Use Standard Drinks/Week Comments Never 0 (1 standard drink = 0.6 oz pur e alcohol) Sex and Gender Information Value Date Recorded Sex Assigned at Not on file Gender Identity Not on file Sexual Orientation Not on file Job Start Date Occupation Industry Not on file Not on file Not on file documented as of this encounter Patient Instructions * Patient Instructions* Johanne Sellers MD - 10/13/2023 1:23 PM EST SUNSCREEN USE AND SUN PROTECTION: 1. The best protection is sun avoidance. Seek shade if you can, especially between 9am to 5pm (peaksun hours). 2. Use sunscreen with a Sun Protection Factor (SPF) of 30 or more that protects from Ultraviolet A (UVA) and Ultraviolet B (UVB) wavelength light. This is referred to as broad spectrum sun protection. Unfortunately, even though the protection is broad it is not complete, therefore making sun avoidance the best protection. UVB and UVA have both been implicated in causing skin cancers. Older sunscreens only protected from UVB and sunscreens with added UVA protection should contain Titanium dioxide, Zinc oxide, Mexoryl or Parsol 1789, also known as Avobenzone. 3. Use sun protection daily. Apply 20-30 minutes before going out and reapply every 2 hours. No sunscreen is truly water ''proof'' and it will wash away with sweat, swimming and rubbing. 4. Wear tightly woven, loose fitting (cooler) long sleeved clothing, UV-blocking clothing and sun glasses (eyes need protection as well) and wide-brimmed hatwear (no straw hats with holes because light still gets through). HOW TO CHECK YOUR MOLES: 1. Check moles every month and have a relative/friend check your back if possible. The use of a handheld mirror can help as well. The most common place for melanoma in women are the back and legs, and for men is the back. 2. Look for the ABCD's of melanoma: Asymmetry (strange shape - not round or oval), Borders (notched, scalloped or irregular edges), Color (very black or multi-colored), Diameter (size greater than 5mm or the size greater than a pencil eraser). 3. Changes in old moles and growths of new ones in relation to the ABCD's are the most important factors. 4. Some people have many moles that fit the ABCD criteria. At times the best thing is to look for the ''Ugly Duckling'' mole - the one that stands out the most. 5. If there are any questions on a mole please do not hesitate in calling our office at [phone] to have it evaluated. documented in this encounter Progress Notes * Johanne Sellers MD - 10/13/2023 12:50 PM EST SUBJECTIVE: History of Present Illness: Shannan Beauchamp is a 77 year old female seen today for follow up skin check. No lesions of concern. 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 HEME/LYMPH: No new or enlarging lumps or bumps. MEDICA TIONS: Current Outpatient Medications Medication Sig Dispense Refill ASPIRIN 81 MG PO TABS Take by mouth. MECLIZINE HCL 25 MG PO TABS As directed when traveling 0 metFORMIN (GLUCOPHAGE) 500 MG Tablet Take 1 Tablet by mouth in the morning. 0 Multiple Vitamins-Minerals (PRESERVISION AREDS 2+MULTI VIT) CAPS Take by mouth. Multiple Vitamins-Minerals (PRESERVISION AREDS 2) Capsule Take 1 Capsule by mouth in the morning and 1 Capsule before bedtime. Simvastatin 40 MG Oral Tablet (Zocor) Take 1 Tablet by mouth in the morning. Lisinopril 10 MG Oral Tablet (Prinivil) Take 1 Tablet by mouth in the morning. Vitamin D3 1.25 MG (22446 UT) Oral Capsule take 1 tablet by mouth daily Vitamin C 500 MG Oral Tablet Chewable Take 1 Tablet by mouth in the morning. amLODIPine Besylate 5 MG Oral Tablet (Norvasc) Take 1 Tablet by mouth in the morning. No current facility-administered medications for this visit. ALLERG IES: Patient has no known allergies. OBJECTIVE: GEN: Healthy, alert, no distress, appears oriented, pleasant, and cooperative. SKIN: Detailed exam of hair, face including lids and lips, neck, back, chest, abdomen, buttocks, right and left upper extremities, right and left lower extremities including the nails and digits completed and are normal except: 1. Light brown keratotic plaque at right preauricular area 2. Dunstan to brown scaly thin papules scattered on bilateral upper and lower extremities 3. Ernandez/brown pigmented macules in sun exposed sites consistent with lentigines and photoaging. ASSESS MENT/PLAN: 1. seborrheic keratosis, right preauricular area - benign, reassurance 2. disseminated superficial actinic porokeratosis - no lesions bothersome or growing/changing at this time - continue to monitor - advised strict sun protection 3. History of nonmelanoma skin cancer. Heliodermatosis/other skin changes due to chronic exposure to nonionizing radiation. - Full skin check performed. No evidence of recurrence at previously treated sites of nonmelanoma skin cancer. - Recommended sunscreen (over the counter broad-spectrum sun protection factor 30+ sunscreen daily)/photoprotection. Informational handout reviewing sunscreen/photoprotection and self monitoring for melanoma was provided to patient at today's visit. - return in 1 year or sooner for any new or changing lesions of concern. Follow-up: 1 year The patient was encouraged to contact me with any further questions or concerns. Johanne Sellers MD 10/13/2023 * Samantha Hernandez LPN - 10/13/2023 12:49 PM EST Patient identified by name and date of . Do you have any concerns about pain management for today's visit? No Living Will or Advance Directive for Health Care as noted on problem list. [facility] is a way you can talk to your provider online through e-mail. Would you like to sign up? I can activate it for you? ALREADY ACTIVE Chief Complaint Patient presents with Follow Up Skin check- no acute concerns at this time documented in this encounter Plan of Treatment Upcoming Encounters Date Type Department Care Team (Late st Contact Info) Description 10/04/2024 2:00 PM EST Office Visit Dermatology [facility] [place] [address] [facility] [place] [address] Johanne Sellers MD [address] [facility] [place] [address] Health Maintenance Due Date Last Done Comments DXA Scan 1945 Depression Screening 1957 Hepatitis C Screening 12/07/1963 Zoster Vaccines (1 of 2) 12/07/1995 Pneumococcal Vaccine: 65+ Years (2 of 2 - PPSV23 or PCV20) 09/01/2013 09/01/2012 DTaP,Tdap,and Td Vaccines (3 - Td or Tdap) 02/26/2025 02/26/2015, 07/24/2004 Hepatitis B Aged Out 01/18/1994, 10/1993, 07/20/1993 No longer eligible based on patient's age to complete this topic COVID-19 Vaccine Completed 07/05/2023, , 06/18/2021, Additional history exists Influenza Vaccine (FLU shot) Completed 07/05/2023, 07/01/2022 GARDASIL-HPV IMMUNIZATION SERIES Aged Out No longer eligible based on patient's age to complete this topic MENINGOCOCCAL (MENACTRA/MENVEO) Aged Out No longer eligible based on patient's age to complete this topic documented as of this encounter Medical Devices Not on filedocumented as of this encounter Visit Diagnoses Diagnosis Seborrheic keratosis- Primary Other seborrheic keratosis Disseminated superficial actinic porokeratosis (DSAP) History of nonmelanoma skin cancer Personal history of other malignant neoplasm of skin Other skin changes due to chronic exposure to nonionizing radiation documented in this encounter Care Teams Cosmetic Sales Advisor Relationship Specialty Start Date End Date Britton Miller MD PCP - General Internal Medicine 08/03/11 documented as of this encounter
--- OUTSIDE RECORDS SUMMARY | 2023-12-14 19:31 | External Medical Summary | Continuity of Care Document ---
Author Name Unknown Organization [facility] [address] [facility] Address [address] [place], [place] [id number] Care Team Providers Care Lump Machine Operator Name Role Phone Gill Christina Primary Care Physician [phone] [id number]s): 07/29/23 - 07/29/23 [facility] [address] [facility], [address] [place] [address] [phone] Encounter Diagnosis Benign hypertension without CHF(Discharge Diagnosis) - 07/29/23 Discharge Disposition: Home or Self Care Attending Physician: DEEPAK Christina Jessica A Allergies, Adverse Reactions, Alerts No Known Allergies Assessment and Plan Extracted from: Title:TeleHealth Visit Note - recheck HTN Author:DEEPAK Christina Jessica A Date:07/29/23 1.Benign hypertension with out CHF Benign hypertension without congestive heart failure is chronic and remains uncontrolled. Goalis SBP <135 and DBP <85 mmHg. New prescription was sent for lisinopril 40 mg, 1 tab p.o. dailyand to discontinue the lisinopril 20 mg, 2 tabs p.o. daily. ADDamlodipine5 mg, 1 tab p.o. daily. Patient declined to schedulea follow-up telehealth visit in 1 month, but would prefer to contact the office in the next few weeks with updated readings. Discussed potential for lower extremity edema with the amlodipine, so be mindful of sodium intakeand elevate legs as needed. Follow up in office in 3-4 months. Last clinic note and last labs reviewed today. Immunizations Given and Recorded Vaccine Date Status [...] 1Result Comment: 2021-12-22: Historical information-source unspecified Medications amLODIPine 5 mg oral tablet Start: 07/29/23 9:58:00 EST, 1 tab, PO, Daily, Disp# 90 tab, Refills: 3, Pharmacy: [id number] Start Date: 07/29/23 Stop Date: 07/23/24 Status: Ordered lisinopril 40 mg oral tablet Start: 07/29/23 9:56:00 EST, 1 tab, PO, Daily, Disp# 90 tab, Refills: 3, Pharmacy: [id number] Start Date: 07/29/23 Stop Date: 07/23/24 Status: Ordered metFORMIN 500 mg oral tablet Start: 12/01/22 16:22:00 EDT, See Instructions, Disp# 90 tab, Refills: 3, take 1 tablet by mouth once daily, Pharmacy: [facility] #[id number] Start Date: 12/01/22 Status: Ordered PreserVision AREDS 2 oral capsule Start: 12/22/21 9:35:00 EDT Start Date: 12/22/21 Status: Ordered simvastatin 40 mg oral tablet Start: 03/28/23 11:55:00 EDT, 1 tab, PO, qhs, Disp# 90 tab, Refills: 3, Pharmacy: [facility] #[id number] Start Date: 03/28/23 Status: Ordered Vitamin D3 5000 IU Start: 03/24/22 8:37:00 EDT, Vitamin D3 5000 IU, eRx Product Type: Supply, 1 tab, PO, Daily, Disp# 90 tab, Refills: 1, Pharmacy [facility] #[id number] Start Date: 03/24/22 Status: Ordered Mental Status 07/29/23 Barriers to Learning one year None evide nt Mandatory Health Literacy Documentation Yes Health Literacy Communication Barriers N ever Primary Language Samoan Problem List Condition Confirmation Course Effective Dates Status H ealth Status Informant Ankle edema Confirmed Active Benign hypertension without CHF Confirmed Active Benign recurrent vertigo Confirmed Active Chronic osteoarthritis Confirmed Active Hyperlipidemia LDL goal <100 Confirmed Active Osteoarthritis of right hip Confirmed Active Right groin pain Confirmed Active Type 2 diabetes, HbA1C goal < 8% Confirmed Active Vitamin D deficiency Confirmed Active Diagnosis Diagnosis Type Effective Dates Health Status Clinical Service Informant Benign hypertension without CHF Discharge Diagnosis 07/29/23 Procedures Procedure Date Related Diagnosis Body Site Status Mammogram 1 07/05/23 Completed Bone density scan 2 07/05/22 Compl eted Mammogram 3 06/29/22 Completed Exercise stress test 4 09/11/21 Co mpleted Mammogram 5 06/25/21 Completed X-ray of right knee 6 05/26/21 Com pleted Mammogram 7 06/23/20 Completed Ankle joint operations 1999 Co mpleted [address] [place] [address] Impression: ACR BI-RADS CATEGORY 2: BENIGN 1. No evidence of malignancy [address] [place] [address] Impression: 1. AP spine L1-L4 T-score: -1.9 2. Femur neck left T-score: -1.8 3. Femur neck right T-score: -1.9 4. Femur total left T-score: -0.5 5. Femur total right T-score: -0.5 6. Z-score: -0.1. BMD is considerered WNL relative to age [address] [place] [address] Impression: ACR BI-RADS CATEGORY 1: NEGATIVE 1. No evidence of malignancy [facility] Impression: 1. Exercised according to the MODBRUCE for 3 minutes, achieving a work level of Max METS: 3.40. Resting HR of 76, deirdre to 121. Value represents 83% of the maximal, age-predicted HR. Resting B/P: 118/50, deirdre to 149/63. Test stoppe due to dyspnea, fatigue. [facility] Impression: ACR BI-RADS CATEGORY 2: BENIGN 1. No evidence of [facility] Impression: 1. Mild tricompartmental osteoarthritis 2. No fracture or dislocation within the right knee 3. Small knee effusion [facility] Impression: ACR BI-RADS CATEGORY 2: BENIGN 1. No evidence of malignancy Social History Social History Type Response Smoking Status Never smoked cigaret irma Sex FCM Note * DEEPAK Christina, Gill Crowley: PERFORM Event Display: [facility] Note Authored Date: [id number] TeleHealth Visit Note I have confirmed the patients name and date of . The patient has consented to this service,and I have advised the patient that this is a billable visit for which they may be subject to a copay. [ _ ] The patient has initiated this visit after he/she was informed of the availability of telehealth for this medically necessary visit. [ _x ] The provider initiated this visit after explaining the need for this visit to the patient, who has consented to this virtual visit. I am located at my: [ x_ ] Office [ _ ] Home [ _ ] Other: _ The patient is located at: [ _x ] Home [ _ ] Other: _ This visit was conducted via live audio/video technology: [ x_ ] [facility] [ _ ] Zoom This visit was conducted via [ _ ] Telephone, and was not related to a visit or procedure that occurred within the past 7 days. Telephone Only Visit: Reason for audio only visit was [ _ ] no internet connection available [ _ ] Other: _. Total time spent communicating with the patient: _ minutes Chief Complaint follow up to BP, not any better, was 170 this morning. History of Present Illness Steve presents for follow-up of hypertension without congestive heart failure. At the time of our last appointment HTN without congestive heart failure remained uncontrolled. Her lisinopril was increased from 10 to 20 mgonce daily. Ankitid bring her blood pressure cuff into our office for nursing appointment for comparisonandher BP cuff appeared accurate. She hassince been checking BP at home regularlythat is typically in the 150s/90s, butSBP has been in the 160-170s. This morning BP [id number]/90. She had been on low-dose HCTZ 12.5 mg in combinationwithlisinopril, but this was discontinued due tohypotension and patient had electrolyte disturbancesand a decline in renal function. No ETOH, tobacco or drug use. No regular exercise. + chronic DOEfor years that is unchanged from her baseline. She did have an echocardiogram in the last yearthat showed grade 1 diastolic dysfunction.She had an exercise stress test in early Alexsander [place]gu[place] that was negative for ischemia.+ poor sleep quality and is unsure if she snores.No claudication, chest pain, chest tightness, back pain, jaw pain, neck pain, indigestion, palpitations, tachycardia, dizziness, lightheadedness, weakness, near syncope, syncope, nausea, vomiting, diarrhea, constipation, cough, LE edema, headaches, blurred vision, loss of vision, confusion or epistaxis. Review of Systems ROS:All other systems negative, except HPI. Physical Exam General: No acute distress. Speaking comfortably. Does not appear anxious. HEENT: Bulbar conjunctiva clear. No discharge from eyes. No nasal discharge. Lips not swollen. No visible neck masses. Skin: No rash on visible, exposed area. Neurologic: Alert and oriented x 3, able to interact. Psychiatric: Pleasant. Normal affect. Respiratory: Good inspiratory effort, no use of accessory muscles. No increased work of breathing. Able to complete full sentences. Assessment/Plan 1.Benign hypertension without CHF Benign hypertension without congestive heart failure is chronic and remains uncontrolled. Goalis SBP <135 and DBP <85 mmHg. New prescription was sent for lisinopril 40 mg, 1 tab p.o. dailyand to discontinue the lisinopril 20 mg, 2 tabs p.o. daily. ADDamlodipine5 mg, 1 tab p.o. daily. Patient declined to schedulea follow-up telehealth visit in 1 month, but would prefer to co ntact the office in the next few weeks with updated readings. Discussed potential for lower extremity edema with the amlodipine, so be mindful of sodium intakeand elevate legs as needed. Followup in office in 3-4 months. Last clinic note and last labs reviewed today. Problem List/Past Medical History Ongoing Ankle edema Benign hypertension without CHF Benign recurrent vertigo Chronic osteoarthritis Hyperlipidemia LDL goal <100 Osteoarthritis of right hip Right groin pain Type 2 diabetes, HbA1C goal < 8% Vitamin D deficiency Procedure/Surgical History Mammogram (07/05/2023)Bone density scan (07/05/2022)Mammogram (06/29/2022)Exercise stress test (09/11/2021)Mammogram (06/25/2021)X- ray of right knee (05/26/2021)Mammogram (06/23/2020)Ankle joint operations (1999) Medications amLODIPine(amLODIPine 5 mg oral tablet), 5 mg= 1 tab, PO, Daily, 3 refills lisinopril(lisinopril 40 mg oral tablet), 40 mg= 1 tab, PO, Daily, 3 refills metFORMIN(metFORMIN 500 mg oral tablet), See Instructions multivitamin with minerals(PreserVision AREDS 2 oral capsule) simvastatin(simvastatin 40 mg oral tablet), 40 mg= 1 tab, PO, qhs, 3 refills unlisted medication(Vitamin D3 5000 IU), 1 tab, PO, Daily, 1 refills Allergies NKA Social History Smoking Status Never smoked cigarettes Alcohol Use:Current Frequency:1-2 times per month Employment/School Status: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 Exercise - Occasional exercise Exercise type:Walking, yardwork Home/Environment Lives with:Alone Sexual - No Sexual Activity Substance Abuse - Denies Substance Abuse Tobacco - Denies Tobacco Use Family History Breast cancer: Mother. Heart attack: Mother and Father. Hypertension: Mother and Sister. Macular disease: Sister. Type II diabetes mellitus: Mother and Sister. Health Status Family Member(s) Immunizations Vaccine Date Status influenza virus vaccine, inactivated 07/01/2022 Given SARS-CoV-2 (COVID-19) mRNA BNT-162b2 vax 06/18/2021 Recorded Comments : 2021-12-22: Historical information-source unspecified tetanus/diphtheria/pertuss, acel (Tdap) 02/26/2015 Recorded pneumococcal 13-valent vaccine 09/01/2012 Recorded tetanus/diphtheria/pertuss, acel (Tdap) 07/24/2004 Recorded hepatitis B pediatric vaccine 01/18/1994 Recorded hepatitis B pediatric vaccine 08/17/1993 Recorded hepatitis B pediatric vaccine 07/20/1993 Recorded Recommendations Health Maintenance Pending(in the next year) OverDue Adult Influenza Vaccine due02/12/23and every 1year Medicare Annual Wellness Visit due07/01/23and every 1year Due Adult COVID-19 Vaccination due07/29/23Unknown Frequency Adult Social Determinants of Health Screening due07/29/23Unknown Frequency Hepatitis C Screening due07/29/23One-time only Pneumococcal Vaccine Older Adults due07/29/23One-time only Shingles Vaccine due07/29/23One-time only Due In Future Diabetes Management A1c not due until01/04/24and every 366day Diabetic Eye Exam not due until03/18/24and every 731day Body Mass Index not due until07/11/24and every 366day Satisfied(in the past 1 year) Satisfied Body Mass Index on10/20/22.Satisfied by [facility] [place] Diabetes Management A1c on01/03/23.Satisfied by Contributor_system, [id number] Diabetes Nephropathy Management on01/03/23.Satisfied by Contributor_system, [id number] Lipid Screening on01/03/23.Satisfied by Contributor_system, [id number] Patient Care team information Care Team Personnel Name: DEEPAK Christina, Gill Crowley Position: Physician Asst Allen - Family Med Member Role: Primary Care Provider Address: Address: [address] [place] [address], [place] [address]
--- OUTSIDE RECORDS SUMMARY | 2023-12-14 19:32 | External Medical Summary | Continuity of Care Document ---
Author Name Unknown Organization [facility] [address] [facility] Address [address] [place], [place] [id number] Care Team Providers Care Medical Supervisor Name Role Phone Gill Christina Primary Care Physician [phone] [facility] [id number] Date(s): 07/11/23 - 07/11/23 [facility] [address], [address] [place] [address] [phone] Encounter Diagnosis Benign hypertension without congestive heart failure(Discharge Diagnosis) - 07/11/23 Benign hypertension without CHF(Discharge Diagnosis) - 07/11/23 Discharge Disposition: Home or Self Care Attending Physician: DEEPAK Christina Jessica A Allergies, Adverse Reactions, Alerts No Known Allergies Assessment and Plan Extracted from: Title:HTN Author:DEEPAK Christina Jessica A Date:07/11/23 1.Benign hypertension with out CHF Benign hypertension without congestive heart failure is chronic and has remained uncontrolled. Goal SBP <135 and DBP <85 mmHg. Last 2 clinic notes and most recent labs reviewed today. We will have herdiscontinue lisinopril 10 mg daily and increase to lisinopril 20 mg once daily. We will have her follow-up for telehealth/telephone appointment again in 2 weeksfor recheck. Plan to recheck BMP in 2 weeks as well. Immunizations Given and Recorded Vaccine Date Status Refusal Reason influenza virus vaccine, inactivated 07/01/22 Give n SARS-CoV-2 (COVID-19) mRNA BNT-162b2 vax 1 06/18/21 Recorded tetanus/diphtheria/pertuss, acel (Tdap) 02/26/15 R ecorded tetanus/diphtheria/pertuss, acel (Tdap) 07/24/04 R ecorded pneumococcal 13-valent vaccine 1/18/13 Recorded hepatitis B pediatric vaccine 01/18/94 Recorded hepatitis B pediatric vaccine 08/17/93 Recorded hepatitis B pediatric vaccine 07/20/93 Recorded 1Result Comment: 2021-12-22: Historical information-source unspecified Medications lisinopril 20 mg oral tablet Start: 07/11/23 9:48:00 EST, 1 tab, PO, Daily, Disp# 30 tab, Note to Pharmacy: cancel 10 mg dose, Pharmacy: [facility] #[id number] Start Date: 07/11/23 Stop Date: 08/10/23 Status: Ordered meloxicam 15 mg oral tablet Start: 07/01/22 10:46:00 EST, 1 tab, PO, Daily, Disp# 30 tab, Refills: 5, Pharmacy: [facility] #[id number] Start Date: 07/01/22 Stop Date: 12/28/22 Status: Ordered metFORMIN 500 mg oral tablet Start: 12/01/22 16:22:00 EDT, See Instructions, Disp# 90 tab, Refills: 3, take 1 tablet by mouth once daily, Pharmacy: [facility] #[id number] Start Date: 12/01/22 Status: Ordered PreserVision AREDS 2 oral capsule Start: 12/22/21 9:35:00 EDT Start Date: 12/22/21 Status: Ordered simvastatin 40 mg oral tablet Start: 03/28/23 11:55:00 EDT, 1 tab, PO, qhs, Disp# 90 tab, Refills: 3, Pharmacy: [facility] #[id number] Start Date: 03/28/23 Status: Ordered Vitamin C 500 mg oral capsule Start: 10/20/22 13:09:00 EST Start Date: 10/20/22 Status: Ordered Vitamin D3 5000 IU Start: 03/24/22 8:37:00 EDT, Vitamin D3 5000 IU, eRx Product Type: Supply, 1 tab, PO, Daily, Disp# 90 tab, Refills: 1, Pharmacy [facility] #[id number] Start Date: 03/24/22 Status: Ordered Mental Status 07/11/23 Barriers to Learning one year None evide nt Mandatory Health Literacy Documentation Yes Health Literacy Communication Barriers N ever Primary Language Micronesian Problem List Condition Confirmation Course Effective Dates [...] Informant Benign hypertension without CHF Discharge Diagnosis 07/11/23 Benign hypertension without congestive heart failure Discharge Diagnosis 07/11/23 Non-Specified Procedures Procedure Date Related Diagnosis Body Site Status Mammogram 1 07/05/23 Completed Bone density scan 2 07/05/22 Compl eted Mammogram 3 06/29/22 Completed Exercise stress test 4 09/11/21 Co mpleted Mammogram 5 06/25/21 Completed X-ray of right knee 6 05/26/21 Com pleted Mammogram 7 06/23/20 Completed Ankle joint operations 1999 Co mpleted [address] [place] [address] Impression: ACR BI-RADS CATEGORY 2: BENIGN 1. No evidence of malignancy [address] [place] [address] Impression: 1. AP spine L1-L4 T-score: -1.9 2. Femur neck left T-score: -1.8 3. Femur neck right T-score: -1.9 4. Femur total left T-score: -0.5 5. Femur total right T-score: -0.5 6. Z-score: -0.1. BMD is considerered WNL relative to age [address] [place] [address] Impression: ACR BI-RADS CATEGORY 1: NEGATIVE 1. No evidence of malignancy [facility] Impression: 1. Exercised according to the MODBRUCE for 3 minutes, achieving a work level of Max METS: 3.40. Resting HR of 76, deirdre to 121. Value represents 83% of the maximal, age-predicted HR. Resting B/P: 118/50, deirdre to 149/63. Test stoppe due to dyspnea, fatigue. [facility] Impression: ACR BI-RADS CATEGORY 2: BENIGN 1. No evidence of malignancy [address] [place] [address] Impression: 1. Mild tricompartmental osteoarthritis 2. No fracture or dislocation within the right knee 3. Small knee effusion [facility] Impression: ACR BI-RADS CATEGORY 2: BENIGN 1. No evidence of malignancy Vital Signs Most recent to oldest [Reference Range]: 1 Patient Weight 103.4 kg (07/11/23 9:32 AM) Temperature [36.5-37.9 DegC] 36.5 DegC (07/11/23 9:32 AM) Heart Rate 76 bpm (07/11/23 9:32 AM) Respiratory Rate 20 br/min (07/11/23 9:32 AM) Blood Pressure 192/104mmHg (07/11/23 9:32 AM) Cuff Pulse Pressure 88 mmHg (07/11/23 9:32 AM) BP Location # 1 Left Arm, Manual (07/11/23 9:32 AM) Social History Social History Type Response Smoking Status Never smoked cigaret irma Sex [facility] Note * DEEPAK Christina, Glil Crowley: PERFORM Event Display: [facility] Note Authored Date: Chief Complaint Routine follow-up. Blood pressure still remains uncontrolled History of Present Illness Steve presents for follow-up of hypertension without congestive heart failure. She was initially seen in about a month ago for hypertensive urgencyandat that time was on lisinopril 10 mg alone, so this wasswitched tolisinoprilHCTZ 20-12.5 mg once daily. She then developedan episode of hypotensionand blood pressure on follow-up a couple of weeks later was 102/64 mmHg. She was thendropped back to lisinopril 10 mgdaily with HCTZ 12.5 mg once daily. Follow-up blood work then showednew prerenal azotemia, so was advised to hold HCTZto see how blood pressurewas back on only lisinopril 10 mg daily. Since then her blood pressure has been "all over the place." Checking blood pressure at home daily to few times per week that runs 150-170/76-78 mmHg. This morning SBP was 190. She did forget her purse, which had her blood pressure readings and wrist cuff and them this morning. No ETOH, tobacco or drug use. No regular exercise. + chronic DOEfor years that is unchanged from her baseline. She did have an echocardiogram in the last yearthat showed grade 1 diastolic dysfunction.She had an exercise stress test in early [facility] that was negative for ischemia. No claudication, chest pain, chest tightness, back pain, jaw pain, neck pain, indigestion, palpitations, tachycardia, dizziness, lightheadedness, weakness, near syncope, syncope, nausea, vomiting, diarrhea, constipation, cough, LE edema, headaches, blurred vision, loss of vision, confusion or epistaxis. Review of Systems ROS:All other systems negative, except HPI. Physical Exam Vitals & Measurements T:36.5C HR:76(Monitored) RR:20 BP:192/104 SpO2:97% WT:103.4kg WT:103.400kg(Dosing) PHQ2 Data(Data Documented on:07/11/2023 09:32) Emotional health assessment NEGATIVE General: Alert and oriented, No acute distress.Pleasant. Eye: Pupils are equal, round and reactive to light, Extraocular movements are intact, Normal conjunctiva. HENT: Normocephalic. TMs clear bilaterally. Posterior pharynx is pink. Uvula rises midline. No drooling, stridor or cyanosis. Neck: Supple, No lymphadenopathy, No thyromegaly. No audible carotid bruit. Respiratory: Lungs are clear to auscultation, Respirations are non-labored, Breath sounds are equal, Symmetrical chest wall expansion. Cardiovascular: Normal rate, Regular rhythm, No murmur, No gallop, Good pulses equal in all extremities, Normal peripheral perfusion. No LE edema. Musculoskeletal: Normal gait. FROM and 5/5 strength at BLE and BUE. Integumentary: Warm, [place], No pallor. Neurologic: Alert, Oriented, Cranial Nerves II-XII are grossly intact. Cognition and Speech: Oriented, Speech clear and coherent, Functional cognition intact. Psychiatric: Cooperative, Appropriate mood & affect, Normal judgment, Nonsuicidal. Assessment/Plan 1.Benign hypertension without CHF Benign hypertension without congestive heart failure is chronic and has remained uncontrolled. Goal SBP <135 and DBP <85 mmHg. Last 2 clinic notes and most recent labs reviewed today. We will have herdiscontinue lisinopril 10 mg daily and increase to lisinopril 20 mg once daily. We will have her follow-up for telehealth/telephone appointment again in 2 weeksfor recheck. Plan to recheck BMP in 2 weeks as well. Problem List/Past Medical History Ongoing Ankle edema Benign hypertension without CHF Benign recurrent vertigo Chronic osteoarthritis Hyperlipidemia LDL goal <100 Osteoarthritis of right hip Right groin pain Type 2 diabetes, HbA1C goal < 8% Vitamin D deficiency Procedure/Surgical History Mammogram (07/05/2023)Bone density scan (07/05/2022)Mammogram (06/29/2022)Exercise stress test (09/11/2021)Mammogram (06/25/2021)X- ray of right knee (05/26/2021)Mammogram (06/23/2020)Ankle joint operations (1999) Medications ascorbic acid(Vitamin C 500 mg oral capsule) lisinopril(lisinopril 20 mg oral tablet), 20 mg= 1 tab, PO, Daily meloxicam(meloxicam 15 mg oral tablet), 15 mg= 1 tab, PO, Daily, 5 refills metFORMIN(metFORMIN 500 mg oral tablet), See Instructions multivitamin with minerals(PreserVision AREDS 2 oral capsule) simvastatin(simvastatin 40 mg oral tablet), 40 mg= 1 tab, PO, qhs, 3 refills unlisted medication(Vitamin D3 5000 IU), 1 tab, PO, Daily, 1 refills Allergies NKA Social History Smoking Status Never smoked cigarettes Alcohol Use:Current Frequency:1-2 times per month 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 [employer] Exercise - Occasional exercise Exercise type:Walking, [...] due07/01/23and every 1year Due Adult COVID-19 Vaccination due07/11/23Unknown Frequency Hepatitis C Screening due07/11/23One-time only Pneumococcal Vaccine Older Adults due07/11/23One-time only Shingles Vaccine due07/11/23One-time only Due In Future Diabetes Management A1c not due until01/04/24and every 366day Diabetic Eye Exam not due until03/18/24and every 731day Body Mass Index not due until07/10/24and every 1year Satisfied(in the past 1 year) Satisfied Body Mass Index on10/20/22.Satisfied by KG Azar, Luba Diabetes Management A1c on01/03/23.Satisfied by Contributor_system, [id number] Diabetes Nephropathy Management on01/03/23.Satisfied by Contributor_system, [id number] Lipid Screening on01/03/23.Satisfied by Contributor_system, [id number] Patient Care team information Care Team Personnel Name: DEEPAK Christina, Gill Crowley Position: Physician Asst Allen - Family Med Member Role: Primary Care Provider Address: Address: [address] [place] [address], [place] [address] [place]
[2023-12-14] MEDS: APIXABAN 5 MG TABLET PO SCH (19:46)
[2023-12-14 19:53] LABS: Appearance Urine Clear (Clear); Bacteria Urine Automated None Seen (None Seen); Bilirubin Urine Negative (Negative); Blood Urine Negative (Negative); Cast Urine Automated 0-2 /lpf (0-2); Color Urine Yellow; Epithelial Cell Urine Auto 0-2 /hpf (0-2); Glucose Urine UA Negative (Negative); Ketones Urine Trace (Negative); Leukocyte Esterase Urine 1+ (Negative); Nitrite Urine Negative (Negative); Protein Urine Negative (Negative); RBC Urine Automated 0-2 /hpf (0-2); Specific Gravity Urine 1.016 (1.000-1.030); Urobilinogen Urine Negative (Negative); WBC Urine Automated 0-5 /hpf (0-5)
[2023-12-14] MEDS: *HEPARIN INFUSION*STOP ORDER ONE (20:54)
[2023-12-15 07:35] LABS: Albumin Globulin Ratio 1.7 (0.9-2); Albumin Level 3.4 gm/dl (3.4-5.0); BUN Creatinine Ratio 18.1 (10-20); Calcium 8.1 mg/dl (8.6-10.3); Creatinine Clr Calc Pharmacy 77.1 ml/min; Est GFR (Non-African American) 80.2 ml/min; Total Protein 5.4 gm/dl (6.0-8.3)
--- NOTE | 2023-12-15 08:39 | XCELERA ---
[id number] \\[id number]
[2023-12-15 08:56] LABS: Basophils # (auto) 0.02 K/uL (0.00-0.20); Basophils % (auto) 0.4 %; Eosinophils % (auto) 4.2 %; Hematocrit (blood only) 34.9 % (37.0-47.0); Hemoglobin 11.6 g/dl (12.0-16.0); Immature Granulocytes # (auto) 0.03 K/uL (0.01-0.20); Immature Granulocytes % (auto) 0.6 %; Lymphocytes # (auto) 1.44 K/uL (1.20-3.40); Lymphocytes % (auto) 30.4 %; Mean Corpuscular Hemoglobin 30.6 pg (25.0-34.0); Mean Corpuscular Hgb Conc 33.2 g/dL (32.0-36.0); Mean Corpuscular Volume 92.1 fL (80.0-100.0); Mean Platelet Volume 10.3 fL (9.4-12.4); Monocytes # (auto) 0.42 K/uL (0.11-0.59); Monocytes % (auto) 8.9 %; Neutrophils # (auto) 2.63 K/uL (1.40-6.50); Neutrophils % (auto) 55.5 %; Platelet Count 288 K/uL (130-400); RDW Coefficient of Variation 12.3 % (11.5-14.5); RDW Standard Deviation 41.4 fL (36.4-46.3); Red Blood Count 3.79 M/uL (4.20-5.40); White Blood Count 4.74 K/ul (4.8-10.8)
[2023-12-15] MEDS: ONDANSETRON INJ 2 MG/ML 2 ML VIAL IV PRN (10:50)
--- NOTE | 2023-12-15 13:21 | Hospitalist Progress Note ---
Date of Service December 15, 2023 Assessment & Plan (1) Atrial fibrillation with rapid ventricular response: Plan: New diagnosis Currently on p.o. Cardizem. Cardizem drip turned off this morning Heart rate controlled Heparin drip has been switched to Eliquis. She will be discharged on Eliquis. TTE reviewed TSH within normal limits Most likely provoked by COVID-19 infection and dehydration (2) Nausea and vomiting: Plan: -Likely due to covid 19 infection -No acute findings on CT of the abd/pelvis w/con Tolerating diet. Not vomiting anymore. No diarrhea. However still slightly n auseous. Discontinued IV fluids (3) COVID-19: Plan: -Patient is not hypoxic, supportive care for now -Incentive spirometry, prn guaifenesin, prn O2 to keep SpO2 at or above 92% (4) Abnormal CT scan, pelvis: Plan: -CT scan of the abd/pelvis w/IV con today mentions increased thickening of the endometrium for the patient's age -Recommends non-emergent pelvic US and [employer] gynecology follow-up -This will need to be pursued by her PCP. (5) Diarrhea: Plan: -Most likely secondary to COVID Resolved (6) Elevated troponin: Plan: -Initial high sen trop elevated at 55 --> 55 on 2 hour repeat -Patient denies chest pain -Likely due to demand ischemia from afib RVR, dehydration, and hypotension TTE no showed wall motion abnormality -Switch from heparin drip to Eliquis (7) HTN (hypertension): Plan: -Currently stable -Hold amlodipine and lisinopril for now with hypotension at the time of admission Started on diltiazem p.o. May resume amlodipine at the time of discharge (8) DMII (diabetes mellitus, type 2): Plan: -Hold metformin -Monitor BSG ACHS, goal is 110-160 for now -Not on insulin at home -Start CF 50 and CR of 15 for now -Adjust regimen as needed (9) Hyperlipidemia: Plan: -Continue statin Plan Likely discharge tomorrow Admission and Anticipated Discharge Date Admission Date: December 13, 2023 Subjective Patient feels well. Denies chest pain or shortness of breath. She was taken off of the Cardizem drip this morning. Review of Systems Review of Systems: All systems reviewed & are unremarkable except as noted in Subjective Physical Exam Physical Exam: General: Awake, conversant Heart: S1, S2/regular rate and rhythm, no murmur rubs or gallops Lungs: Clear to auscultation bilaterally. Normal effort Abdomen: Soft/nontender/nondistended. No hepatosplenomegaly Extremities: No clubbing/cyanosis. No edema Behavior: Appropriate, cooperative Results & Data Results & Data Vital Signs (Past 12 Hours) Vital Signs Temp Pulse Pulse Resp BP Pulse Ox O2 Del Method 12/15/23 08:32 77 12/15/23 08:00 36.5 C 87 22 160/89 H 97 Room Air 12/15/23 03:08 36.6 C 74 21 124/73 95 Room Air Laboratory Results Abnormal lab results 12/14/23 12/14/23 12/14/23 Range/Units 16:43 19:35 20:01 WBC (4.8-10.8) K/ul RBC (4.20-5.40) M/uL Hgb (12.0-16.0) g/dl Hct (37.0-47.0) % Glucose (70-99(Fasting)) mg/dl POC Glucose 137 H 159 H (70-99) mg/dl Calcium (8.6-10.3) mg/dl Total Protein (6.0-8.3) gm/dl Globulin (2.5-4.0) gm/dl Urine Ketones Trace H (Negative) Ur Leukocyte Esterase 1+ H (Negative) 12/15/23 12/15/23 12/15/23 Range/Units 05:53 07:39 11:42 WBC 4.74 L (4.8-10.8) K/ul RBC 3.79 L (4.20-5.40) M/uL Hgb 11.6 L (12.0-16.0) g/dl Hct 34.9 L (37.0-47.0) % Glucose 140 H (70-99(Fasting)) mg/dl POC Glucose 145 H 150 H (70-99) mg/dl Calcium 8.1 L (8.6-10.3) mg/dl Total Protein 5.4 L (6.0-8.3) gm/dl Globulin 2.0 L (2.5-4.0) gm/dl Urine Ketones (Negative) Ur Leukocyte Esterase (Negative) PG Care Time/CCT Total # of Minutes Spent Total Time Spent with Patient: Total time spent is greater than 50% in coordination of care (as documented) at patient's floor/unit and/or counseling patient: Coding Level of Care Code 46396 SUB INP/OBS CARE 2/35MIN Diagnoses Atrial fibrillation with rapid ventricular response I48.91 Nausea and vomiting R11.2 COVID-[address] scan, pelvis R93.5 Diarrhea R19.7 Elevated troponin R79.89 HTN (hypertension) I10 DMII (diabetes mellitus, type 2) E11.9 Hyperlipidemia E78.5
[2023-12-16 07:28] LABS: Basophils # (auto) 0.02 K/uL (0.00-0.20); Basophils % (auto) 0.3 %; Eosinophils # (auto) 0.25 K/uL (0.00-0.50); Eosinophils % (auto) 4.1 %; Hematocrit (blood only) 36.4 % (37.0-47.0); Hemoglobin 12.2 g/dl (12.0-16.0); Immature Granulocytes # (auto) 0.04 K/uL (0.01-0.20); Immature Granulocytes % (auto) 0.7 %; Lymphocytes % (auto) 26.4 %; Mean Corpuscular Hemoglobin 30.6 pg (25.0-34.0); Mean Corpuscular Hgb Conc 33.5 g/dL (32.0-36.0); Mean Corpuscular Volume 91.2 fL (80.0-100.0); Mean Platelet Volume 10.2 fL (9.4-12.4); Monocytes # (auto) 0.55 K/uL (0.11-0.59); Monocytes % (auto) 9.1 %; Neutrophils # (auto) 3.59 K/uL (1.40-6.50); Neutrophils % (auto) 59.4 %; Platelet Count 315 K/uL (130-400); RDW Coefficient of Variation 12.3 % (11.5-14.5); RDW Standard Deviation 41.6 fL (36.4-46.3); Red Blood Count 3.99 M/uL (4.20-5.40); White Blood Count 6.05 K/ul (4.8-10.8)
[2023-12-16 07:49] LABS: Albumin Globulin Ratio 1.8 (0.9-2); Albumin Level 3.6 gm/dl (3.4-5.0); BUN Creatinine Ratio 15.4 (10-20); Bilirubin,Total 0.9 mg/dl (0.2-1.0); Calcium 8.5 mg/dl (8.6-10.3); Creatinine Clr Calc Pharmacy 71.1 ml/min; Est GFR (African American) 84.4 ml/min; Est GFR (Non-African American) 72.8 ml/min; Magnesium 1.9 mg/dl (1.7-2.4); Total Protein 5.6 gm/dl (6.0-8.3)
--- NOTE | 2023-12-16 08:45 | Electrocardiogram Report ---
Test Reason : Blood Pressure : / mmHG Vent. Rate : 106 BPM Atrial Rate : 000 BPM P-R Int : 000 ms QRS Dur : 076 ms QT Int : 322 ms P-R-T Axes : 000 014 127 degrees QTc Int : 427 ms Atrial fibrillation with rapid ventricular response Minimal voltage criteria for LVH, may be normal variant ( R in aVL ) Abnormal ECG When compared with ECG of 13-DEC-2023 14:15, No significant change was found Confirmed by Toney Ward ([id number]) on 12/16/2023 8:44:47 AM Referred By: REFERRED SELF Confirmed By:Toney Ward
[2023-12-16] MEDS: lisinopril 40 MG TAB PO SCH (08:58)
[2023-12-16 09:05] VITALS: RESP 16; TEMP 98.1; O2SAT 96
--- NOTE | 2023-12-16 10:25 | Discharge Summary ---
Date of Service December 16, 2023 Admission HPI Per Admitting Provider Shannan is a 78 year old female with a PMH significant for HTN, hyperlipidemia, and DMII who presented to the [facility] ED on 12/13/23 with complaints of positive home Covid-19 test on 12/12/23 and ongoing weakness, nausea, vomiting for the past week. On arrival to the ED she was noted to be tachycardic with HR in the 150's but was otherwise stable. ECG shows patient to be in new onset afib RVR. Labs were significant for a Cr of 1.06 (baseline is near 0.7), AG of 12 with bicarb WNL, chloride of 96, corrected sodium of 135, glucose of 181, ionized calcium of 1.04, initial high sen trop of 55 --> 55 on 2 hour repeat. Chest xray was negative for acute findings. CTA of the chest and CT of the abd/pelvis w/IV con were read as "1. There is no evidence of pulmonary embolus in the main, lobar, or segmental pulmonary arteries. 2. There is no airspace consolidation or pleural effusion. 3. No acute infectious or inflammatory findings are identified in the abdomen or pelvis. 4. Mild colonic diverticulosis without CT evidence of acute diverticulitis. 65. The endometrium appears thickened for age. This is not well assessed by CT, and nonemergent follow-up with gynecology and pelvic ultrasound is recommended for further assessment. 6. Additional findings as above.". Prior to admission the patient was given 1L NSS, 20 mg IV diltiazem, 4 mg IV zofran, and was started on a diltiazem drip at 5 mg/hr. At the time of the exam the patient was sitting in bed in no acute distress. She states that she started to develop a non-productive cough, nausea, non- bloody emesis, non-bloody diarrhea, and poor oral intake one week ago. She has had very poor oral intake over this time but has still been taking her home meds as prescribed, including her antihypertensives. She presented to the ED today as she continues to feel generally weak and was not improving. Denies recent chest pain, SOB, abd pain, hemoptysis, dysuria, hematuria, melena, LE swelling, and recent trauma. We discussed her [id number] score of 5, giving her an approximately 7.2% stroke risk per/year. When asked, patient and her [id number] confirm the patient does not have a previous Hx of major bleeding such as stroke, GI bleed, hematuria, and is not a high fall risk. Patient would like to being anticoagulation at this time. The patient is a full code and she would want her son to make medical decisions for her if she cannot make them herself. At the end of my exam the patient's HR increased to the 140's and her systolic BP fell into the mid 70's. Patient became light headed but denies other symptoms. We gave the patient an additional 250 cc NSS bolus and her pressure/symptoms improved. Please refer to Dr. Lamb' attestation for any changes to the treatment plan Admission Exam Per Admitting Provider General: In no acute distress, stated age, ill but non-toxic appearing HEENT: Normocephalic, atraumatic, no scleral icterus, pupils around round, symmetrical, and reactive to light, dry mucus membranes, trachea midline, no thyromegaly Chest/Pulm: No respiratory distress, symmetrical chest expansion, clear breath sounds throughout Cardiac: irregular rate and rhythm, no murmurs noted Abdomen: Negative for ascites and bruising, normoactive bowel sounds, soft, non- tender to palpation throughout Musculoskeletal: Symmetrical and without signs of acute trauma, upper and lower extremities with full ROM, no atrophy, spasticity, or flaccidity Extremities: Radial, dorsalis pedis, and posterior tibial pulses are intact and symmetrical, no edema noted in the BL LE's Skin: Warm, dry, no rashes , lesions, or scars noted Neuro: Alert and oriented to person, place, month, year, and president, no focal defects, CN II-XII tested and intact, no tremors noted Psych: No acute distress, calm and cooperative during the exam Principal Diagnosis Paroxysmal small atrial fibrillation, rapid rate COVID-19 infection Discharge Exam General: Awake, conversant Heart: S1, S2/ irregular rhythm, no murmur rubs or gallops Lungs: Clear to auscultation bilaterally. Normal effort Abdomen: Soft/nontender/nondistended. No hepatosplenomegaly Extremities: No clubbing/cyanosis. No edema Behavior: Appropriate, cooperative Discharge Data Allergies Allergy/AdvReac Type Severity Reaction Status Date / Time No Known Allergies Allergy Verified 12/13/23 16:05 Consultations 12/13/23 15:56 ED Decision to Admit Stat Ordered Studies 12/13/23 14:08 CT abd pelvis IV con only Stat CT angio chest PE protocol Stat Hospital Course (1) Atrial fibrillation with rapid ventricular response: New diagnosis Currently on p.o. Cardizem. Cardizem drip turned off / Heart rate controlled on p.o Cardizem 120 mg. Although heart rate going up with mild exertion. Will increase the dose of p.o. Cardizem to 180 mg Heparin drip has been switched to Eliquis. She will be discharged on Eliquis. TTE reviewed TSH within normal limits Most likely provoked by COVID-19 infection and dehydration (2) Nausea and vomiting: -Likely due to covid 19 infection -No acute findings on CT of the abd/pelvis w/con Tolerating diet. Not vomiting anymore. No diarrhea. Discontinued IV fluids (3) COVID-19: -Patient is not hypoxic, supportive care for now -Incentive spirometry, prn guaifenesin, prn O2 to keep SpO2 at or above 92% (4) Abnormal CT scan, pelvis: -CT scan of the abd/pelvis w/IV con today mentions increased thickening of the endometrium for the patient's age -Recommends non-emergent pelvic US and [employer] [facility] gynecology follow-up -This will need to be pursued by her PCP. (5) Diarrhea: -Most likely secondary to COVID Resolved (6) Elevated troponin: -Initial high sen trop elevated at 55 --> 55 on 2 hour repeat -Patient denies chest pain -Likely due to demand ischemia from afib RVR, dehydration, and hypotension TTE no showed wall motion abnormality -Switched from heparin drip to Eliquis (7) HTN (hypertension): -Hold amlodipine Started on diltiazem p.o. Resumed lisinopril (8) DMII (diabetes mellitus, type 2): -Hold metformin -Monitor BSG ACHS, goal is 110-160 for now -Not on insulin at home -Start CF 50 and CR of 15 for now -Adjust regimen as needed (9) Hyperlipidemia: -Continue statin Plan Discharge to home today Total Time Total Time Spent Total Time Spent (In Minutes): 35 Discharge Plan Discharge Items Patient Disposition: Home - Self-Care Reason For Visit: COVID 19, NEW ONSET AFIB RVR Discharge Diagnosis: Paroxysmal small atrial fibrillation, rapid rate COVID-19 infection Activity: Resume your previous activity Non-emergency contact: Primary Care Provider Call non-emergency contact if: you have any medication questions and your symptoms worsen Follow-up/Referrals: Gill Christina PA-C [Primary Care Provider] - 12/19/23 10:25 am (with Dr. Irving at [facility]. ) Diet: Heart Healthy Addtl Attending Provider Instructions: Advised to follow-up with PCP in 1 week Pending Studies at Discharge: No Stand-Alone Forms: My [facility] Medications and DC Order Prescriptions: New Eliquis 5 mg Tablet 5 mg PO BID 30 Days Qty: 60 0RF diltiazem HCl [Cartia XT] 180 mg capsule,extended release 24hr 180 mg PO DAILY Qty: 30 0RF Continued metformin 500 mg tablet 500 mg PO QAM simvastatin 40 mg tablet 40 mg PO HS lisinopril 40 mg tablet 40 mg PO QAM Held amlodipine 5 mg tablet 5 mg PO QAM Hold Instructions: Resume on 12/26/23. hold until seen by PCP Discharge Orders: Discharge Order (Routine); Ordered 12/16/23 Ordered By: Laila Florence/Other Patient Handouts: Apixaban Oral Tablet, Diltiazem Extended Release Oral Capsule Admission Data Admit Date/Time: 12/13/23 16:06 Attending Provider: Laila Cowan Admit Provider: Fidencio Lamb Primary Care Provider: Gill Christina Other Providers: Fidencio Lamb Other Interventions: Discharge Summary Assessment (RN) Last Done: 12/16/23 12:56 Coding Level of Care Code 12679 INP/OBS DISCH >30 MIN Diagnoses Atrial fibrillation with rapid ventricular response I48.91 Nausea and vomiting R11.2 COVID-[address] scan, pelvis R93.5 Diarrhea R19.7 Elevated troponin R79.89 HTN (hypertension) I10 DMII (diabetes mellitus, type 2) E11.9 Hyperlipidemia E78.5
[2023-12-16] MEDS: dilTIAZem HCL 30 MG TAB PO STA (11:34)
[2023-12-16 12:04] VITALS: BP 110/71
[2023-12-16 12:57] VITALS: PULSE 97
== END 2023-12-16 14:24 | disposition home or self-care (01) | DRG 308 ==
LOC: ED 13:46 → SUATTDRO 16:06 → 2E 16:06
DX: Z79.899 Other long term (current) drug therapy; A08.39 Other viral enteritis; I48.91 Unspecified atrial fibrillation; E86.0 Dehydration; I24.89 Other forms of acute ischemic heart disease; I95.9 Hypotension, unspecified; E11.9 Type 2 diabetes mellitus without complications; I10 Essential (primary) hypertension; U07.1 COVID-19; Z79.84 Long term (current) use of oral hypoglycemic drugs; E78.5 Hyperlipidemia, unspecified